=== PATIENT | male | born 1960 | race Caucasian/White ===

== ENCOUNTER 2018-10-09 14:30 | Inpatient (IN) | payer OTHER ==
[2018-10-09] MEDS ORDERED: ONDANSETRON 4 MG/2 ML VIAL IVP STA ×2 (14:52→19:05)
[2018-10-09] MEDS ORDERED: THIAMINE INJ 100 MG in SODIUM CHLORIDE 0.9% 50 ML IV STA (14:52)
[2018-10-09] MEDS ORDERED: PANTOPRAZOLE 40 MG VIAL IVP STA (14:52)
[2018-10-09] MEDS ORDERED: SODIUM CHLORIDE 0.9% 1,000 ML IV ONE ×2 (14:52→21:13)
--- NOTE | 2018-10-09 14:55 | ED Physician Documentation ---
PD HPI ABD PAIN - Stated complaint Stated Complaint: DIZZINESS - Chief complaint Chief Complaint: Abd Pain - History obtained from History obtained from: Patient, Family () - History of Present Illness Timing - onset: Other (This is a 58-year-old gentleman with history of hypertension on losartan, chronic back pain on morphine and oxycodone and reflux on omeprazole. He admits to alcohol used, totaling about 1/5 of vodka a day. The last 2 weeks he has had vomiting of bile, no blood and for a week now he has had substernal/epigastric cramping. He has had some near syncopal episodes without injury. He is chronically constipated and now it is no different.) Review of Systems Ten Systems: 10 systems reviewed and negative Constitutional: reports: Fatigue. denies: Fever, Chills Ears: denies: Ear pain, Drainage/discharge Nose: denies: Rhinorrhea / runny nose, Congestion Cardiac: reports: Chest pain / pressure. denies: Palpitations GI: reports: Abdominal Pain, Nausea, Vomiting, Constipation. denies: Diarrhea, Hematemesis, Bloody / black stool : denies: Dysuria, Frequency PD PAST MEDICAL HISTORY - Past Medical History Cardiovascular: Hypertension GI: GERD Musculoskeletal: Chronic back pain - Past Surgical History Past Surgical History: Yes General: Appendectomy, Colonoscopy - Present Medications Home Medications: Ambulatory Orders Medication Instructions Recorded Confirmed Losartan Potassium [Cozaar] 100 mg ORAL DAILY 12/21/12 10/09/18 Omeprazole [PriLOSEC] 10 mg ORAL DAILY 12/21/12 10/09/18 hydroCHLOROthiazide [Hydrodiuril] 12.5 mg PO DAILY 08/02/13 10/09/18 Morphine ER 15 mg PO BID 09/20/15 10/09/18 oxyCODONE [Roxicodone] 5 mg PO TID 09/20/15 10/09/18 - Allergies Allergies/Adverse Reactions: Allergies Allergy/AdvReac Type Severity Reaction Status Date / Time No Known Drug Allergies Allergy Verified 02/27/16 05:29 - Social History Does the pt smoke?: No Smoking Status: Never smoker Does the pt drink ETOH?: No Does the pt have substance abuse?: No - Family History Family history: reports: Non contributory - Immunizations Immunizations are current?: No - POLST Patient has POLST: No PD ED PE NORMAL - Vitals Vital signs reviewed: Yes - General General: Alert and oriented X 3, No acute distress - HEENT HEENT: PERRL, EOMI - Neck Neck: Supple, no meningeal sign, No bony TTP - Cardiac Cardiac: Other (Slight tachycardia, regular, no murmur) - Respiratory Respiratory: No respiratory distress, Clear bilaterally - Abdomen Abdomen: Normal bowel sounds, Soft, Other (Mild diffuse abdominal tenderness with fullness in the left lower quadrant) - Male Male : Other (Firm stool in vault, brown, guaiac negative, QC pass) - Back Back: No CVA TTP, No spinal TTP - Derm Derm: Normal color, Warm and dry - Extremities Extremities: No edema, No calf tenderness / cord - Neuro Neuro: Alert and oriented X 3, Normal speech Results - Vitals Vitals: Vital Signs - 24 hr 10/09/18 10/09/18 10/09/18 14:36 14:51 14:54 Temperature 36.4 C L Heart Rate 60 108 H 110 H Respiratory 18 20 16 Rate Blood Pressure 58/39 L 63/50 L 76/53 L O2 Saturation 88 L 96 98 10/09/18 10/09/18 10/09/18 15:01 15:13 15:17 Temperature Heart Rate 110 H 106 H 110 H Respiratory 16 18 18 Rate Blood Pressure 75/37 L 80/53 L 78/38 L O2 Saturation 97 98 100 10/09/18 10/09/18 10/09/18 15:20 15:25 15:35 Temperature Heart Rate 120 H 109 H 107 H Respiratory 18 18 17 Rate Blood Pressure 91/55 L 82/55 L 98/53 L O2 Saturation 97 100 97 10/09/18 10/09/18 10/09/18 15:45 15:55 16:05 Temperature Heart Rate 112 H 113 H 117 H Respiratory 15 113 H 16 Rate Blood Pressure 60/44 L 97/62 109/65 O2 Saturation 99 99 99 10/09/18 10/09/18 10/09/18 16:15 16:30 16:40 Temperature Heart Rate 115 H 118 H 120 H Respiratory 16 14 15 Rate Blood Pressure 112/68 114/72 117/77 O2 Saturation 99 97 97 10/09/18 17:31 Temperature Heart Rate 115 H Respiratory 18 Rate Blood Pressure 131/84 H O2 Saturation 98 Oxygen O2 Source Room air - EKG (time done) 1449 Rate: Rate (enter#) (110) Rhythm: Sinus tachycardia Cato: Normal Intervals: Normal [place] QRS: Normal Ischemia: Normal ST segments Computer interpretation: Agree with computer - Labs Labs: Laboratory Tests 10/09/18 10/09/18 10/09/18 14:20 14:20 14:20 WBC 15.7 H RBC 3.76 L Hgb 13.0 L Hct 39.4 L MCV 104.9 H MCH 34.5 H MCHC 32.9 RDW 13.0 Plt Count 211 MPV 7.9 Neut # (Auto) 14.1 H Lymph # (Auto) 0.8 L Mayes # (Auto) 0.7 Eos # (Auto) 0.0 Baso # (Auto) 0.1 Absolute Nucleated RBC 0.01 Nucleated RBC % 0.0 PT 12.4 INR 1.1 Sodium 135 Potassium 4.3 Chloride 94 L Carbon Dioxide 21 Anion Gap 20.0 H BUN 31 H Creatinine 1.6 H Estimated GFR (MDRD) 44 L Glucose 132 H Lactic Acid Calcium 9.7 Total Bilirubin 1.7 H AST 252 H ALT 121 H Alkaline Phosphatase 131 H Total Creatine Kinase 378 H CK-MB (CK-2) Troponin I Total Protein 8.1 Albumin 4.6 Globulin 3.5 Albumin/Globulin Ratio 1.3 Lipase 64 H Ethyl Alcohol 104.8 10/09/18 10/09/18 14:20 15:25 WBC RBC Hgb Hct MCV MCH MCHC RDW Plt Count MPV Neut # (Auto) Lymph # (Auto) Mayes # (Auto) Eos # (Auto) Baso # (Auto) Absolute Nucleated RBC Nucleated RBC % PT INR Sodium Potassium Chloride Carbon Dioxide Anion Gap BUN Creatinine Estimated GFR (MDRD) Glucose Lactic Acid 4.6 H* Calcium Total Bilirubin AST ALT Alkaline Phosphatase Total Creatine Kinase CK-MB (CK-2) 6.2 Troponin I < 0.04 Total Protein Albumin Globulin Albumin/Globulin Ratio Lipase Ethyl Alcohol - Rads (name of study) 1v chest Radiology: EMP read contemporaneously (NAD) CT A/P Radiology: EMP read contemporaneously (hepatic steatosis, stool burden. colitis) PD MEDICAL DECISION MAKING - ED course ED course: This is a 58-year-old gentleman who is an alcoholic who presents with 2 weeks of vomiting and a week's worth of abdominal pain. He is hypotensive. The low pulse oximetry in triage was never corroborated. His pressure rebounded well with IV fluids. He was guaiac negative. He was administered Protonix, Zofran, thiamine, IV fluids, and Ativan for mild withdrawal. He has evidence of alcoholic liver disease and acute renal insufficiency. CT showed evidence of colitis, constipation. For the colitis he was administered Zofran after blood cultures. Flagyl was held given concurrent intoxication. - Critical Care Time(min): 40 Time Includes: Direct patient care, Review records, Reassess patient, Document care, Coordinate care, Medical consult, Family consult for tx dec Data interpretation: Labs, Pulse ox Procedures included in critical care time: Peripheral IV Procedures excluded from critical care time: EKG - Sepsis Event Current Stage of Sepsis: Septic shock Initial Hypotension: MAP less than 65 mmHg Possible source of Sepsis: GI tract/intra-abdominal Mental/Cognitive Status: Alert/Oriented X3, Normal for patient Capillary refill: Less than 2 seconds Peripheral Pulse Strength: 1+ Faint Peripheral Pulse Location: Radial Bedside ultrasound performed: No Departure - Departure Disposition: 66 [facility] DC/Xfer Clinical Impression: Dehydration, ALLA (acute kidney injury), Colitis Hypotension Qualifiers: Hypotension type: unspecified hypotension type Qualified Code(s): I95.9 - Hypotension, unspecified Abdominal pain Qualifiers: Abdominal location: epigastric Qualified Code(s): R10.13 - Epigastric pain Vomiting Qualifiers: Vomiting type: bilious vomiting Nausea presence: with nausea Qualified Code(s): R11.14 - Bilious vomiting Condition: Critical
[2018-10-09 15:20] LABS: ALBUMIN 4.6 g/dL (3.2-5.5); ALBUMIN/GLOBULIN RATIO 1.3 (1.0-2.2); BILIRUBIN,TOTAL 1.7 mg/dL (0.2-1.0); CALCIUM 9.7 mg/dL (8.5-10.3); CREATININE 1.6 mg/dL (0.6-1.2); TOTAL PROTEIN 8.1 g/dL (6.7-8.2)
[2018-10-09 15:23] LABS: BASOPHILS # (AUTO) 0.1 10^3/uL (0.0-0.1); BASOPHILS % (AUTO) 0.3 %; EOSINOPHILS % (AUTO) 0.1 %; LYMPHOCYTES # (AUTO) 0.8 10^3/uL (1.5-3.5); LYMPHOCYTES % (AUTO) 5.3 %; MEAN CORPUSCULAR HEMOGLOBIN 34.5 pg (27.0-31.0); MEAN CORPUSCULAR HGB CONC 32.9 g/dL (32.0-36.0); MEAN CORPUSCULAR VOLUME 104.9 fL (80.0-94.0); MEAN PLATELET VOLUME 7.9 fL (7.4-11.4); MONOCYTES # (AUTO) 0.7 10^3/uL (0.0-1.0); MONOCYTES % (AUTO) 4.3 %; NEUTROPHILS # (AUTO) 14.1 10^3/uL (1.5-6.6); PLT - PLATELET COUNT 211 10^3/uL (130-450); RED BLOOD COUNT 3.76 10^6/uL (4.70-6.10); WHITE BLOOD COUNT 15.7 x10^3/uL (4.8-10.8)
[2018-10-09 15:25] LABS: TROPONIN I < 0.04 ng/mL (<0.49)
[2018-10-09 15:27] LABS: CREATINE KINASE MB 6.2 ng/mL (0.6-6.3); INR 1.1 (0.8-1.2); PT - PROTHROMBIN TIME 12.4 secs (9.9-12.6)
[2018-10-09] MEDS ORDERED: LACTATED RINGERS 2,857.62 ML IV STA (15:28)
[2018-10-09] MEDS ORDERED: IOVERSOL 320 100 ML VIAL IVP ONE (15:36)
[2018-10-09] MEDS ORDERED: LORazepam 2 MG/ML VIAL IVP STA ×2 (15:44→19:05)
--- NOTE | 2018-10-09 16:32 | XRAY Report ---
Reason: abd/chest pain Procedure Date: 10/09/2018 Accession Number: [id number] / [id number] Procedure: XR - Chest 1 View X-Ray CPT Code: 13239 FULL RESULT: EXAM: CHEST RADIOGRAPHY EXAM DATE: 10/09/2018 04:20 PM. CLINICAL HISTORY: Abd/chest pain. COMPARISON: 09/20/2015 TECHNIQUE: 1 view. FINDINGS: Lungs/Pleura: No focal opacities evident. No pleural effusion. No pneumothorax. Mediastinum: Within exam limitations, the cardiomediastinal contour is normal. Other: No acute findings compared with 09/20/2015. IMPRESSION: Normal single view chest. RADIA
--- NOTE | 2018-10-09 16:57 | CT Report ---
Reason: IV only, abd/chest pain Procedure Date: 10/09/2018 Accession Number: [id number] / [id number] Procedure: CT - Abdomen/Pelvis W CPT Code: FULL RESULT: EXAM: CT ABDOMEN AND PELVIS EXAM DATE: 10/09/2018 04:15 PM. CLINICAL HISTORY: Chest and abdominal pain. COMPARISONS: ABDOMEN/PELVIS W/ 12/21/2012 6:03 AM. TECHNIQUE: Routine helical CT imaging was performed through the abdomen and pelvis. IV contrast: 100 mL Optiray 320. Enteric contrast: No. Reconstructions: Coronal and sagittal. In accordance with CT protocol optimization, one or more of the following dose reduction techniques were utilized for this exam: automated exposure control, adjustment of mA and/or KV based on patient size, or use of iterative reconstructive technique. FINDINGS: Lung Bases: Clear. Liver: Diffuse low attenuation of the hepatic parenchyma, as before, indicating steatosis. No focal hepatic lesion. Gallbladder/Bile Ducts: Unremarkable. No visualized stones or biliary ductal dilatation. Spleen: Normal. Pancreas: Normal. Adrenal Glands: Normal. Kidneys and Ureters: Normal. No stones, hydronephrosis, or hydroureter. Peritoneal Cavity/Bowel: Large stool volume throughout the colon, with inspissated appearing stool in the sigmoid colon and rectum. Mild diffuse colon wall thickening from the ascending colon through the descending colon. No dilated small bowel loops to suggest obstruction. The appendix is not seen. No free fluid, pneumoperitoneum, or adenopathy. Pelvic Organs: The bladder and visualized reproductive organs are within normal limits. Vasculature: Mild atherosclerotic calcifications within the aorta and iliac arteries. Bones: Multilevel degenerative disk disease, most pronounced in moderate to severe at L5-S1. No acute bony abnormality. Other: None. IMPRESSION: 1. Large colorectal stool burden with inspissated appearing stool in the sigmoid colon and rectum. 2. Mild diffuse colon wall thickening from the ascending colon to the descending colon, suggesting mild colitis. 3. Steatotic liver, as before. RADIA
[2018-10-09] MEDS ORDERED: PIPERACILLIN/TAZOBACTAM 4.5 GM in SODIUM CHLORIDE 0.9% MINIBAG 100 ML IV STA (17:04)
[2018-10-09] MEDS ORDERED: MORPHINE 2 MG/ML SYRINGE IVP STA (17:12)
[2018-10-09 17:37] LABS: BILIRUBIN,URINE NEGATIVE (NEGATIVE); GLUCOSE, URINE (UA) NEGATIVE (NEGATIVE); KETONES,URINE (UA) TRACE mg/dL (NEGATIVE); LEUKOCYTE ESTERASE, URINE NEGATIVE (NEGATIVE); NITRITE,URINE NEGATIVE (NEGATIVE); OCCULT BLOOD,URINE NEGATIVE (NEGATIVE); PH,URINE 6.5 PH (5.0-7.5); PROTEIN,URINE TRACE mg/dL (NEGATIVE); UROBILINOGEN,URINE 1 (NORMAL) E.U./dL (NORMAL)
[2018-10-09 17:38] LABS: CLARITY,URINE CLEAR (CLEAR)
[2018-10-09] MEDS ORDERED: ONDANSETRON 4 MG/2 ML VIAL IVP PRN (21:04)
[2018-10-09] MEDS ORDERED: LORazepam 1 MG TABLET PO PRN ×2 (21:19→23:58)
[2018-10-09] MEDS ORDERED: PIPERACILLIN/TAZOBACTAM 3.375 GM in SODIUM CHLORIDE 0.9% MINIBAG 100 ML IV SCH (22:00)
[2018-10-09 22:01] LABS: BASOPHILS % (AUTO) 0.3 %; HGB - HEMOGLOBIN 11.9 g/dL (14.0-18.0); PLT - PLATELET COUNT 130 10^3/uL (130-450)
[2018-10-09 22:07] LABS: LYMPHOCYTES % (AUTO) 1.6 %; MEAN CORPUSCULAR HEMOGLOBIN 35.3 pg (27.0-31.0); MEAN CORPUSCULAR HGB CONC 33.6 g/dL (32.0-36.0); MEAN CORPUSCULAR VOLUME 104.9 fL (80.0-94.0); MEAN PLATELET VOLUME 7.8 fL (7.4-11.4); MONOCYTES % (AUTO) 8.3 %; NEUTROPHILS % (AUTO) 89.8 %; RED BLOOD COUNT 3.38 10^6/uL (4.70-6.10); WHITE BLOOD COUNT 9.5 x10^3/uL (4.8-10.8)
--- NOTE | 2018-10-09 22:08 | HISTORY & PHYSICAL EXAMINATION ---
Chief Complaint - Chief Complaint Chief Complaint: abdominal cramps, nausea/vomiting History of Present Illness - Admitted From Admitted From:: [facility] - History Obtained From Records Reviewed: yes History obtained from: patient - History of Present Illness HPI Comment/Other: Patient seen on 10/09/18 at 20:05 pm Patient is a 58 y/o male who presented to the ED with complain of nausea and vomiting and abdominal cramps. His symptoms have been going on daily for the past couple of weeks. However it seemed worse today so he came to the ED. In addition he had been dizzy and almost fell a couple of times. He has been unable to keep down food or his medications. He denied chest pain, HILLARY, fever, chills or lower extremity swelling. He reports some balance issues and would sometimes use a cane to get around the house. During the exam, the patient was intermittently tremulous. He has history of alcohol abuse and usually drinks a fifth of vodka daily. Today he drank a glass of vodka. He reports history of alcohol withdrawal and richard chec ked himself into a rehab facility before. Upon presentation in the ED, he was found to have a SBP as low as 50, a lactic acid of 4.6 and a WBC of 15. As a result he is being admitted for further manag ement History - Past Medical History Cardiovascular: reports: Hypertension GI: reports: GERD Musculoskeletal: reports: Chronic back pain MRSA Hx?: No Other Past Medical History: Alcohol abuse - Past Surgical History General: reports: Appendectomy, Colonoscopy Ortho: reports: Arthroscopic surgery (right knee) - Family & Social History Family History Comment/Other: Family history reviewed and negative for any significant illnesses. Patient reports that all his immediate family members are alive, healthy and well. Living arrangement: At home Living Situation: With spouse/s.o. - Substance History Abuse: Recurrent use of substance despite neg consequences: Alcohol Abuse Issues: Intoxication - POLST Patient has POLST: No POLST Status: Full Code Meds/Allgy - Home Medications Home Medications: Ambulatory Orders Medication Instructions Recorded Confirmed Losartan Potassium [Cozaar] 100 mg ORAL DAILY 12/21/12 10/09/18 Omeprazole [PriLOSEC] 10 mg ORAL DAILY 12/21/12 10/09/18 hydroCHLOROthiazide [Hydrodiuril] 12.5 mg PO DAILY 08/02/13 10/09/18 Morphine ER 15 mg PO BID 09/20/15 10/09/18 oxyCODONE [Roxicodone] 5 mg PO TID 09/20/15 10/09/18 - Allergies Allergies/Adverse Reactions: Allergies Allergy/AdvReac Type Severity Reaction Status Date / Time No Known Drug Allergies Allergy Verified 02/27/16 05:29 Review of Systems - Constitutional Constitutional: reports: Fever, Poor appetite. denies: Chills, Diaphoresis, Night sweats - Eyes Eyes: denies: Amaurosis, Blurred vision, Vision loss, Dipolpia - Ears, Nose & Throat Ears, Nose & Throat: denies: Nasal pain, Nasal discharge, Sore throat, Hoarseness - Cardiovascular Cariovascular: reports: Palpitations, Lightheadedness. denies: Chest pain, Edema - Respiratory Respiratory: denies: Cough, Wheezing, SOB at rest, SOB with exertion - Gastrointestinal Gastrointestinal: reports: Abdominal pain, Constipation, Nausea, Vomiting, Reflux/heartburn, Poor appetite. denies: Diarrhea, Black stools, Coffee grounds emesis - Genitourinary Genitourinary: denies: Dysuria, Frequency, Urgency, Hematuria - Musculoskeletal Musculoskeletal: reports: Back pain (chronic). denies: Joint swelling - Integumentary Integumentary: denies: Rash, Pruritis, Lesions - Neurological Neurological: reports: Dizziness, Abnormal gait. denies: Focal weakness, Heada mariam, Seizures, Slurred speech - Psychiatric Psychiatric: denies: Depression, Anxiety, Hallucinations - Endocrine Endocrine: denies: Polyuria, Polydypsia - Hematologic/Lymphatic Hematologic/Lymphatic: denies: Anemia, Bruising, Petechiae Prior Level of Functionality: Patient lives at home with significant other He is independent of activities of daily living Uses cane to get around the house sometimes Exam - Vital Signs Reviewed Vital Signs: Yes Vital Signs: Vital Signs x48h Temp Pulse Resp BP Pulse Ox 10/09/18 21:16 38.7 C H 10/09/18 21:12 135 H 22 94/68 93 10/09/18 20:10 136 H 18 95/55 L 95 10/09/18 19:52 38.1 C H 137 H 21 105/64 92 10/09/18 19:04 38.1 C H 117 H 15 104/65 96 10/09/18 18:04 117 H 17 131/87 H 98 10/09/18 17:49 118 H 18 144/98 H 98 10/09/18 17:31 115 H 18 131/84 H 98 10/09/18 16:40 120 H 15 117/77 97 10/09/18 16:30 118 H 14 114/72 97 10/09/18 16:15 115 H 16 112/68 99 10/09/18 16:05 117 H 16 109/65 99 10/09/18 15:55 113 H 113 H 97/62 99 10/09/18 15:45 112 H 15 60/44 L 99 10/09/18 15:35 107 H 17 98/53 L 97 10/09/18 15:25 109 H 18 82/55 L 100 10/09/18 15:20 120 H 18 91/55 L 97 10/09/18 15:17 110 H 18 78/38 L 100 10/09/18 15:13 106 H 18 80/53 L 98 10/09/18 15:01 110 H 16 75/37 L 97 10/09/18 14:54 110 H 16 76/53 L 98 10/09/18 14:51 108 H 20 63/50 L 96 10/09/18 14:36 36.4 C L 60 18 58/39 L 88 L - Physical Exam General Appearance: positive: Alert, Moderate distress Eyes Bilateral: positive: Normal inspection, PERRL, EOMI ENT: positive: ENT inspection nml, Pharynx nml, Dry mucous membranes Neck: positive: Nml inspection, No JVD, Trachea midline Respiratory: positive: Chest non-tender, No respiratory distress, Breath sounds nml. negative: Wheezes, Rales, Rhonchi Cardiovascular: positive: No murmur, Tachycardia Abdomen: positive: Nml bowel sounds, Tenderness. negative: Guarding, Rebound Back: positive: Nml inspection Skin: positive: Color nml, No rash, Warm, Dry. negative: Cyanosis, Diaphoresis Extremities: positive: Non-tender, Full ROM, Nml appearance, No pedal edema, Joint swelling Neurologic/Psychiatric: positive: Oriented x3, Other (tremulous) Sepsis Event Note (H) - Evaluation Current Stage of Sepsis: Sepsis Possible source of Sepsis: positive: GI tract/intra-abdominal - Sepsis Criteria Sepsis Criteria: Suspected or Documented, Recorded Temperature greater than 38.3C or Less than 36C, Recorded Heart Rate greater than 90 bpm, WBC count greater than 12,000 or less than 4000, SBP less than 90 mmHg, Metabolic: lactate > 2 mmol/L Conclusion/Plan - Problem List (1) Sepsis Conclusion/Plan: Etiology undetermined However, GI source: colitis suspected per CT of abd/pelvis Patient started on zosyn. Will continue Blood cultures pending IV hydration. Tylenol for fevers (2) Colitis Conclusion/Plan: Mild. Suggested on CT abd/pelvis Patient on IV antibiotics and IV hydration (3) Hypotension Conclusion/Plan: ? Multifactorial sepsis vs dehydration vs medication Patient being hydrated with normal saline. On IV antibiotics. Will hold HCTZ and lisinopril Qualifiers: Hypotension type: unspecified hypotension type Qualified Code(s): I95.9 - Hypotension, unspecified (4) Alcohol abuse Conclusion/Plan: CIWA protocol ordered (5) Macrocytic Conclusion/Plan: Likely related to alcohol abuse and possibly Vit B12 deficiency Will recheck and replace accordingly (6) ALLA (acute kidney injury) Conclusion/Plan: Likely multifactorial ?Sepsis, dehydration and/or medication IV antibiotics. IV hydration. Lisinopril/ HCTZ currently held Improving (7) GERD (gastroesophageal reflux disease) Conclusion/Plan: Protonix ordered (8) Chronic back pain Conclusion/Plan: MS Contin 15mg ED po bid ordered Qualifiers: Back pain location: low back pain - Lab Results Fish Bones: 10/09/18 14:20 10/09/18 14:20 Core Measures - Anticipated LOS I expect patient to be DC'd or transferred within 96 hours.: Yes - DVT/VTE - Prophylaxis VTE/DVT Device ordered at admit?: Yes VTE/DVT Prophylaxis med ordered at admit?: No Not Ordered - Medical Reason: Not indicated
[2018-10-09 22:12] LABS: INR 1.2 (0.8-1.2); PT - PROTHROMBIN TIME 13.2 secs (9.9-12.6)
[2018-10-09 22:19] LABS: ABNORMAL LYMPHS % (MANUAL) 0 %; ALBUMIN 3.5 g/dL (3.2-5.5); ALBUMIN/GLOBULIN RATIO 1.2 (1.0-2.2); BILIRUBIN,TOTAL 1.9 mg/dL (0.2-1.0); CALCIUM 8.8 mg/dL (8.5-10.3); CREATININE 1.4 mg/dL (0.6-1.2); TOTAL PROTEIN 6.5 g/dL (6.7-8.2)
[2018-10-09 22:37] LABS: BAND NEUTROPHILS % (MANUAL) 29 %; LYMPHOCYTES # (MANUAL) 0.3 10^3/uL (1.5-3.5); LYMPHOCYTES % (MANUAL) 3 %; MONOCYTES # (MANUAL) 0.9 10^3/uL (0.0-1.0); NEUTROPHILS # (MANUAL) 8.4 10^3/uL (1.5-6.6); NEUTROPHILS % (MANUAL) 59 %
[2018-10-09 22:38] LABS: DIFFERENTIAL COMMENT MANUAL DIFFERENTIAL; PLATELET ESTIMATE, MANUAL NORMAL (130-450,000) (NORMAL); PLATELET MORPHOLOGY NORMAL APPEARANCE (NORMAL); RBC MORPHOLOGY (MULTIPLE) NORMAL APPEARANCE (NORMAL)
[2018-10-09] MEDS: MORPHINE ER 15 MG TABLET PO SCH (23:08)
[2018-10-09] MEDS ORDERED: MORPHINE ER 15 MG TABLET ONE (23:12)
[2018-10-09] MEDS: SODIUM CHLORIDE 0.9% 1,000 ML IV SCH (23:49)
[2018-10-10] MEDS ORDERED: LORazepam 2 MG/ML VIAL IVP PRN (00:01)
[2018-10-10] MEDS: PIPERACILLIN/TAZOBACTAM 3.375 GM in SODIUM CHLORIDE 0.9% MINIBAG 100 ML IV SCH ×3 (02:37→18:10)
[2018-10-10] MEDS: SODIUM CHLORIDE FLUSH 0.9% 10 ML SYRINGE IVP SCH ×3 (02:38→16:49)
[2018-10-10 05:46] LABS: BASOPHILS % (AUTO) 0.1 %; HGB - HEMOGLOBIN 11.9 g/dL (14.0-18.0); LYMPHOCYTES # (AUTO) 0.1 10^3/uL (1.5-3.5); LYMPHOCYTES % (AUTO) 3.6 %; MEAN CORPUSCULAR HEMOGLOBIN 35.1 pg (27.0-31.0); MEAN CORPUSCULAR HGB CONC 33.3 g/dL (32.0-36.0); MEAN CORPUSCULAR VOLUME 105.4 fL (80.0-94.0); MEAN PLATELET VOLUME 8.1 fL (7.4-11.4); MONOCYTES # (AUTO) 0.5 10^3/uL (0.0-1.0); MONOCYTES % (AUTO) 12.7 %; NEUTROPHILS # (AUTO) 3.2 10^3/uL (1.5-6.6); NEUTROPHILS % (AUTO) 83.6 %; PLT - PLATELET COUNT 110 10^3/uL (130-450); RED BLOOD COUNT 3.39 10^6/uL (4.70-6.10); RED CELL DISTRIBUTION WIDTH 13.1 % (12.0-15.0); WHITE BLOOD COUNT 3.8 x10^3/uL (4.8-10.8)
[2018-10-10 05:59] LABS: ALBUMIN 3.3 g/dL (3.2-5.5); ALBUMIN/GLOBULIN RATIO 1.1 (1.0-2.2); BILIRUBIN,TOTAL 1.5 mg/dL (0.2-1.0); CALCIUM 8.8 mg/dL (8.5-10.3); CREATININE 1.5 mg/dL (0.6-1.2); MAGNESIUM 1.6 mg/dL (1.7-2.8); PHOSPHORUS 3.9 mg/dL (2.5-4.6); TOTAL PROTEIN 6.2 g/dL (6.7-8.2)
[2018-10-10 06:44] LABS: FOLATE 8.79 ng/mL (5.90 - >24.8)
[2018-10-10] MEDS: chlordiazePOXIDE 25 MG CAPSULE PO SCH ×4 (07:11→23:04)
[2018-10-10] MEDS: MAGNESIUM OXIDE 400 MG TABLET PO SCH ×2 (07:11→12:11)
[2018-10-10] MEDS: PANTOPRAZOLE 40 MG VIAL IVP SCH (07:15)
--- NOTE | 2018-10-10 08:13 | PROVIDER PROGRESS NOTE ---
Assessment/Plan - Problem List (1) Sepsis Assessment/Plan: Tachycardia and fever and WBC have improved, but L.A. still fluctuating up. Continue plan to treat for colitis source. Await blood cultures. (2) Colitis Assessment/Plan: Continue bowel rest (clear liquids allowed), and empiric antibiotics. He has alot of gas which he wishes to manage with ambulation, which I support. (3) Alcohol withdrawal Qualifiers: Complication of substance-induced condition: uncomplicated Qualified Code(s): F10.230 - Alcohol dependence with withdrawal, uncomplicated Assessment/Plan: He is comfortable and no signs of withdrawal on his scheduled Librium, started by the admitting doctor. CIWA ordered to assess. Thiamine daily ordered. (4) ALLA (acute kidney injury) Assessment/Plan: Improved with iv hydration. Follow BMP daily. (5) Dehydration Assessment/Plan: Related to 2 weks of GI sx of N/V/D. Continue iv hydration. Follow BMP and Mg daily (6) Chronic back pain Qualifiers: Back pain location: low back pain Assessment/Plan: Continue his home dose of narcotocs for pain control. (7) Macrocytic anemia Assessment/Plan: B12 and Folate levels were still WNL. Will add a vitamin daily due to his alcohol abuse history. (8) Pancytopenia Assessment/Plan: Probably related to alcohol suppression of bone narrow. Follow CBC daily - Current Meds Current Meds: Current Medications Generic Name Dose Route Start Last Admin Trade Name Freq PRN Reason Stop Dose Admin Chlordiazepoxide HCl 50 mg 10/10/18 07:00 10/10/18 07:11 Librium PO 10/12/18 00:01 50 mg Q6HR DANETTE Administration Sodium Chloride 1,000 mls @ 100 mls/hr 10/09/18 22:00 10/10/18 07:00 Normal Saline 0.9% IV 100 mls/hr .Q10H DANETTE Infusion Piperacillin Sod/Tazobactam 100 mls @ 25 mls/hr 10/10/18 02:00 10/10/18 06:30 Sod 3.375 gm/ Sodium Chloride IV Infused Q8H DANETTE Infusion Lorazepam 1 mg 10/10/18 00:01 10/10/18 00:07 Ativan Inj (Vial) IVP 1 mg Q1H PRN Administration Alcohol Withdrawal Magnesium Oxide 400 mg 10/10/18 07:00 10/10/18 07:11 Mag Ox PO 10/10/18 13:01 400 mg Q6H DANETTE Administration Protocol Morphine Sulfate 15 mg 10/09/18 23:00 10/09/18 23:08 PO 15 mg BID DANETTE Administration Pantoprazole Sodium 40 mg 10/10/18 07:00 10/10/18 07:15 Protonix IVP 40 mg QDAC DANETTE Administration Sodium Chloride 10 ml 10/10/18 01:00 10/10/18 02:38 Normal Saline Flush 0.9% IVP 10 ml 0100,[id number],1700 DANETTE Administration - Lab Result Fish Bone Diagrams: 10/10/18 05:25 10/10/18 05:25 Subjective - Subjective Patient Reports: Feeling Better, Diarrhea (Decreased from 6 BMs to 3, still has cramping after clear liquids swallowed, no more N/V.), Other Objective Vital Signs: Vital Signs - 24 hr 10/09/18 10/09/18 10/09/18 14:36 14:51 14:54 Temperature 36.4 C L Heart Rate 60 108 H 110 H Heart Rate [ Monitoring electrodes] Respiratory 18 20 16 Rate Blood Pressure 58/39 L 63/50 L 76/53 L Blood Pressure [Right Brachial artery] O2 Saturation 88 L 96 98 10/09/18 10/09/18 10/09/18 15:01 15:13 15:17 Temperature Heart Rate 110 H 106 H 110 H Heart Rate [ Monitoring electrodes] Respiratory 16 18 18 Rate Blood Pressure 75/37 L 80/53 L 78/38 L Blood Pressure [Right Brachial artery] O2 Saturation 97 98 100 10/09/18 10/09/18 10/09/18 15:20 15:25 15:35 Temperature Heart Rate 120 H 109 H 107 H Heart Rate [ Monitoring electrodes] Respiratory 18 18 17 Rate Blood Pressure 91/55 L 82/55 L 98/53 L Blood Pressure [Right Brachial artery] O2 Saturation 97 100 97 10/09/18 10/09/18 10/09/18 15:45 15:55 16:05 Temperature Heart Rate 112 H 113 H 117 H Heart Rate [ Monitoring electrodes] Respiratory 15 113 H 16 Rate Blood Pressure 60/44 L 97/62 109/65 Blood Pressure [Right Brachial artery] O2 Saturation 99 99 99 10/09/18 10/09/18 10/09/18 16:15 16:30 16:40 Temperature Heart Rate 115 H 118 H 120 H Heart Rate [ Monitoring electrodes] Respiratory 16 14 15 Rate Blood Pressure 112/68 114/72 117/77 Blood Pressure [Right Brachial artery] O2 Saturation 99 97 97 10/09/18 10/09/18 10/09/18 17:31 17:49 18:04 Temperature Heart Rate 115 H 118 H 117 H Heart Rate [ Monitoring electrodes] Respiratory 18 18 17 Rate Blood Pressure 131/84 H 144/98 H 131/87 H Blood Pressure [Right Brachial artery] O2 Saturation 98 98 98 10/09/18 10/09/18 10/09/18 19:04 19:52 20:10 Temperature 38.1 C H 38.1 C H Heart Rate 117 H 137 H 136 H Heart Rate [ Monitoring electrodes] Respiratory 15 21 18 Rate Blood Pressure 104/65 105/64 95/55 L Blood Pressure [Right Brachial artery] O2 Saturation 96 92 95 10/09/18 10/09/18 10/09/18 21:12 21:16 21:48 Temperature 38.7 C H Heart Rate 135 H 127 H Heart Rate [ Monitoring electrodes] Respiratory 22 19 Rate Blood Pressure 94/68 Blood Pressure [Right Brachial artery] O2 Saturation 93 10/09/18 10/09/18 10/09/18 22:00 22:19 22:20 Temperature Heart Rate 143 H 127 H 128 H Heart Rate [ Monitoring electrodes] Respiratory 23 17 18 Rate Blood Pressure 97/54 L Blood Pressure [Right Brachial artery] O2 Saturation 10/09/18 10/09/18 10/09/18 22:29 22:30 22:59 Temperature Heart Rate 122 H 124 H 119 H Heart Rate [ Monitoring electrodes] Respiratory 17 21 23 Rate Blood Pressure 84/62 L Blood Pressure [Right Brachial artery] O2 Saturation 10/09/18 10/09/18 10/09/18 23:00 23:01 23:29 Temperature Heart Rate 124 H 115 H 146 H Heart Rate [ Monitoring electrodes] Respiratory 15 20 23 Rate Blood Pressure 94/73 Blood Pressure [Right Brachial artery] O2 Saturation 10/09/18 10/10/18 10/10/18 23:30 00:00 00:01 Temperature Heart Rate 134 H 120 H 120 H Heart Rate [ Monitoring electrodes] Respiratory 25 H 27 H 25 H Rate Blood Pressure 98/71 112/72 Blood Pressure [Right Brachial artery] O2 Saturation 10/10/18 10/10/18 10/10/18 00:30 00:31 00:59 Temperature Heart Rate 116 H 118 H 124 H Heart Rate [ 123 H Monitoring electrodes] Respiratory 25 H 20 20 Rate Blood Pressure 105/72 Blood Pressure 120/78 [Right Brachial artery] O2 Saturation 97 10/10/18 10/10/18 10/10/18 01:00 02:00 02:01 Temperature 37.2 C Heart Rate 115 H 122 H Heart Rate [ 119 H Monitoring electrodes] Respiratory 20 24 23 Rate Blood Pressure 120/78 124/79 Blood Pressure 124/79 [Right Brachial artery] O2 Saturation 96 10/10/18 10/10/18 10/10/18 03:00 04:00 05:00 Temperature 37.8 C H Heart Rate 121 H 123 H 117 H Heart Rate [ 120 H 123 H 119 H Monitoring electrodes] Respiratory 21 16 19 Rate Blood Pressure 104/71 118/83 H 139/91 H Blood Pressure 104/71 118/83 H 139/91 H [Right Brachial artery] O2 Saturation 94 97 97 10/10/18 10/10/18 05:54 07:00 Temperature Heart Rate Heart Rate [ 125 H 124 H Monitoring electrodes] Respiratory 22 27 H Rate Blood Pressure Blood Pressure 120/69 131/101 H [Right Brachial artery] O2 Saturation 100 98 Oxygen O2 Source Nasal cannula Oxygen Flow Rate 2 I&O (Last 24 Hrs): Intake and Output Totals x24h 10/08/18 10/09/18 10/10/18 23:59 23:59 23:59 Intake Total 5108.62 1338.333 Output Total 840 725 Balance 4268.62 613.333 General: Alert, Oriented x3 HEENT: Mucous membr. moist/pink Neck: Supple, No JVD Neuro: Non Focal, Other (No tremors) Cardiovascular: Regular rate, No murmurs Respiratory: No respiratory distress, Breath sounds nml Abdomen: Other (Distended moderately, hypertympanic, no tenderness, no guarding or rebound) Extremities: No edema - Results Results: Laboratory Results WBC 3.8 x10^3/uL (4.8-10.8) L 10/10/18 05:25 RBC 3.39 10^6/uL (4.70-6.10) L 10/10/18 05:25 Hgb 11.9 g/dL (14.0-18.0) L 10/10/18 05:25 Hct 35.7 % (42.0-52.0) L 10/10/18 05:25 MCV 105.4 fL (80.0-94.0) H 10/10/18 05:25 MCH 35.1 pg (27.0-31.0) H 10/10/18 05:25 MCHC 33.3 g/dL (32.0-36.0) 10/10/18 05:25 RDW 13.1 % (12.0-15.0) 10/10/18 05:25 Plt Count 110 10^3/uL (130-450) L 10/10/18 05:25 MPV 8.1 fL (7.4-11.4) 10/10/18 05:25 Neut # (Auto) 3.2 10^3/uL (1.5-6.6) 10/10/18 05:25 Lymph # (Auto) 0.1 10^3/uL (1.5-3.5) L 10/10/18 05:25 [place] # (Auto) 0.5 10^3/uL (0.0-1.0) 10/10/18 05:25 Eos # (Auto) 0.0 10^3/uL (0.0-0.7) 10/10/18 05:25 Baso # (Auto) 0.0 10^3/uL (0.0-0.1) 10/10/18 05:25 Absolute Nucleated RBC 0.00 x10^3/uL 10/10/18 05:25 Total Counted 100 10/09/18 21:58 Band Neuts % (Manual) 29 % (0-10) H 10/09/18 21:58 Abnorm Lymph % (Manual) 0 % 10/09/18 21:58 Nucleated RBC % 0.0 /100WBC 10/10/18 05:25 Neutrophils # (Manual) 8.4 10^3/uL (1.5-6.6) H 10/09/18 21:58 Lymphocytes # (Manual) 0.3 10^3/uL (1.5-3.5) L 10/09/18 21:58 Monocytes # (Manual) 0.9 10^3/uL (0.0-1.0) 10/09/18 21:58 Eosinophils # (Manual) 0.0 10^3/uL (0-0.7) 10/09/18 21:58 Basophils # (Manual) 0.0 10^3/uL (0-0.1) 10/09/18 21:58 Differential Comment MANUAL DIFFERENTIAL 10/09/18 21:58 Platelet Estimate NORMAL (130-450,000) (NORMAL) 10/09/18 21:58 Platelet Morphology NORMAL APPEARANCE (NORMAL) 10/09/18 21:58 RBC Morph Micro Appear NORMAL APPEARANCE (NORMAL) 10/09/18 21:58 PT 13.2 secs (9.9-12.6) H 10/09/18 21:58 INR 1.2 (0.8-1.2) 10/09/18 21:58 Sodium 137 mmol/L (135-145) 10/10/18 05:25 Potassium 4.9 mmol/L (3.5-5.0) 10/10/18 05:25 Chloride 100 mmol/L (101-111) L 10/10/18 05:25 Carbon Dioxide 23 mmol/L (21-32) 10/10/18 05:25 Anion Gap 14.0 (6-13) H 10/10/18 05:25 BUN 39 mg/dL (6-20) H 10/10/18 05:25 Creatinine 1.5 mg/dL (0.6-1.2) H 10/10/18 05:25 Estimated GFR (MDRD) 48 (>89) L 10/10/18 05:25 Glucose 167 mg/dL (70-100) H 10/10/18 05:25 Lactic Acid 2.7 mmol/L (0.5-2.2) H 10/10/18 05:25 Calcium 8.8 mg/dL (8.5-10.3) 10/10/18 05:25 Phosphorus 3.9 mg/dL (2.5-4.6) 10/10/18 05:25 Magnesium 1.6 mg/dL (1.7-2.8) L 10/10/18 05:25 Total Bilirubin 1.5 mg/dL (0.2-1.0) H 10/10/18 05:25 AST 141 IU/L (10-42) H 10/10/18 05:25 ALT 84 IU/L (10-60) H 10/10/18 05:25 Alkaline Phosphatase 72 IU/L (42-121) 10/10/18 05:25 Total Creatine Kinase 378 IU/L (22-269) H 10/09/18 14:20 CK-MB (CK-2) 6.2 ng/mL (0.6-6.3) 10/09/18 14:20 Troponin I < 0.04 ng/mL (<0.49) 10/09/18 14:20 Total Protein 6.2 g/dL (6.7-8.2) L 10/10/18 05:25 Albumin 3.3 g/dL (3.2-5.5) 10/10/18 05:25 Globulin 2.9 g/dL (2.1-4.2) 10/10/18 05:25 Albumin/Globulin Ratio 1.1 (1.0-2.2) 10/10/18 05:25 Lipase 64 U/L (22-51) H 10/09/18 14:20 Vitamin B12 257 pg/mL (180-914) 10/10/18 05:25 Folate 8.79 ng/mL (5.90 - >24.8) 10/10/18 05:25 Urine Color DARK YELLOW 10/09/18 17:30 Urine Clarity CLEAR (CLEAR) 10/09/18 17:30 Urine pH 6.5 PH (5.0-7.5) 10/09/18 17:30 Ur Specific [place] 1.010 (1.002-1.030) 10/09/18 17:30 Urine Protein TRACE mg/dL (NEGATIVE) 10/09/18 17:30 Urine Glucose (UA) NEGATIVE mg/dL (NEGATIVE) 10/09/18 17:30 Urine Ketones TRACE mg/dL (NEGATIVE) 10/09/18 17:30 Urine Occult Blood NEGATIVE (NEGATIVE) 10/09/18 17:30 Urine Nitrite NEGATIVE (NEGATIVE) 10/09/18 17:30 Urine Bilirubin NEGATIVE (NEGATIVE) 10/09/18 17:30 Urine Urobilinogen 1 (NORMAL) E.U./dL (NORMAL) 10/09/18 17:30 Ur Leukocyte Esterase NEGATIVE (NEGATIVE) 10/09/18 17:30 Ur Microscopic Review NOT INDICATED 10/09/18 17:30 Urine Culture Comments NOT INDICATED 10/09/18 17:30 Nasal Screen MRSA (PCR) NEGATIVE (NEGATIVE) 10/09/18 21:58 Ethyl Alcohol 104.8 mg/dL 10/09/18 14:20 Sepsis Event Note (H) - Evaluation Current Stage of Sepsis: Sepsis Possible source of Sepsis: positive: GI tract/intra-abdominal - Sepsis Criteria Sepsis Criteria: Suspected or Documented, Recorded Temperature greater than 38.3C or Less than 36C, Recorded Heart Rate greater than 90 bpm, WBC count greater than 12,000 or less than 4000, SBP less than 90 mmHg, Metabolic: lactate > 2 mmol/L
[2018-10-10] MEDS: MORPHINE ER 15 MG TABLET PO SCH ×2 (09:04→20:28)
[2018-10-10] MEDS: PRENATAL VITAMIN TABLET PO SCH (09:04)
[2018-10-10] MEDS: THIAMINE 100 MG TABLET PO SCH (09:06)
[2018-10-10] MEDS: SODIUM CHLORIDE 0.9% 1,000 ML IV SCH ×2 (10:00→23:22)
[2018-10-10] MEDS: ACETAMINOPHEN 325 MG TABLET PO PRN (11:06)
[2018-10-10] MEDS ORDERED: SODIUM CHLORIDE 0.9% 1,000 ML IV ONE (23:01)
[2018-10-11] MEDS: SODIUM CHLORIDE 0.9% 1,000 ML IV SCH ×3 (00:31→19:43)
[2018-10-11] MEDS: SODIUM CHLORIDE FLUSH 0.9% 10 ML SYRINGE IVP SCH ×4 (01:23→23:28)
[2018-10-11] MEDS: PIPERACILLIN/TAZOBACTAM 3.375 GM in SODIUM CHLORIDE 0.9% MINIBAG 100 ML IV SCH ×3 (02:09→17:40)
[2018-10-11 05:30] LABS: BASOPHILS % (AUTO) 0.1 %; EOSINOPHILS % (AUTO) 0.2 %; LYMPHOCYTES % (AUTO) 9.6 %; MEAN CORPUSCULAR HEMOGLOBIN 35.6 pg (27.0-31.0); MEAN CORPUSCULAR HGB CONC 33.7 g/dL (32.0-36.0); MEAN CORPUSCULAR VOLUME 105.5 fL (80.0-94.0); MEAN PLATELET VOLUME 8.9 fL (7.4-11.4); MONOCYTES % (AUTO) 9.2 %; NEUTROPHILS % (AUTO) 80.9 %; PLT - PLATELET COUNT 82 10^3/uL (130-450); RED BLOOD COUNT 2.82 10^6/uL (4.70-6.10); RED CELL DISTRIBUTION WIDTH 12.8 % (12.0-15.0); WHITE BLOOD COUNT 3.9 x10^3/uL (4.8-10.8)
[2018-10-11 05:33] LABS: ALBUMIN 2.8 g/dL (3.2-5.5); BILIRUBIN,TOTAL 1.2 mg/dL (0.2-1.0); CALCIUM 7.8 mg/dL (8.5-10.3); CREATININE 1.9 mg/dL (0.6-1.2); MAGNESIUM 1.9 mg/dL (1.7-2.8); TOTAL PROTEIN 5.7 g/dL (6.7-8.2)
[2018-10-11 05:34] LABS: ABNORMAL LYMPHS % (MANUAL) 0 %
[2018-10-11 06:03] LABS: BAND NEUTROPHILS % (MANUAL) 37 %; LYMPHOCYTES # (MANUAL) 0.6 10^3/uL (1.5-3.5); LYMPHOCYTES % (MANUAL) 15 %; METAMYELOCYTES % (MANUAL) 2 %; MONOCYTES # (MANUAL) 0.1 10^3/uL (0.0-1.0); MYELOCYTES % (MANUAL) 2 %; NEUTROPHILS # (MANUAL) 3.1 10^3/uL (1.5-6.6); NEUTROPHILS % (MANUAL) 42 %; PLATELET ESTIMATE, MANUAL DECREASED (<130,000) (NORMAL); RBC MORPHOLOGY (MULTIPLE) NORMAL APPEARANCE (NORMAL)
[2018-10-11 06:04] LABS: DIFFERENTIAL COMMENT MANUAL DIFFERENTIAL
[2018-10-11] MEDS: PANTOPRAZOLE 40 MG VIAL IVP SCH (06:37)
[2018-10-11] MEDS: chlordiazePOXIDE 25 MG CAPSULE PO SCH ×4 (06:38→23:28)
[2018-10-11] MEDS: SODIUM CHLORIDE FLUSH 0.9% 10 ML SYRINGE IVP PRN (06:38)
[2018-10-11] MEDS ORDERED: SODIUM CHLORIDE 0.9% 500 ML IV ONE (07:43)
--- NOTE | 2018-10-11 07:58 | PROVIDER PROGRESS NOTE ---
Assessment/Plan - Problem List (1) Sepsis Assessment/Plan: The patient still has septic shock-like vital signs with hypotension and tachycardia. Will check a L.A level, troponin to R/O WA, give a saline bolus and obtain an Echo to evaluate chamber sizes and LV and RV. Treat colitis. (2) Colitis Assessment/Plan: Continue iv antibiotics. If stool has not been sent for C. diff, will order. (3) Alcohol withdrawal Qualifiers: Complication of substance-induced condition: uncomplicated Qualified Code(s): F10.230 - Alcohol dependence with withdrawal, uncomplicated Assessment/Plan: Continue the Librium po dosing as a taper. Continue CIWA protocol. (4) ALLA (acute kidney injury) Assessment/Plan: Creat drew, along with hypotension and tachycardia, suggest volume depletion. Will give saline bolus, obtain Echo. Continue rehydration while po intake is minimal due to colitis management. Will change iv LR to iv D5NS w/ KCl to decrease citrate load in renal failure.. Follow BMP daily. (5) Dehydration Assessment/Plan: As in #4 (6) Chronic back pain Qualifiers: Back pain location: low back pain Assessment/Plan: Continue scheduled meds, as taken at home (7) Macrocytic anemia Assessment/Plan: On Thiamine and MOV (8) Pancytopenia Assessment/Plan: Likely re;lated to alcohol abuse and marrow suppression. Watching CBC daily. - Current Meds Current Meds: Current Medications Generic Name Dose Route Start Last Admin Trade Name Freq PRN Reason Stop Dose Admin Acetaminophen 650 mg 10/10/18 10:45 10/10/18 11:06 Tylenol PO 650 mg Q4HR PRN Administration Pain or Fever > 38C (100.4F) Chlordiazepoxide HCl 50 mg 10/10/18 07:00 10/11/18 06:38 Librium PO 10/12/18 00:01 50 mg Q6HR DANETTE Administration Sodium Chloride 1,000 mls @ 100 mls/hr 10/09/18 22:00 10/11/18 07:00 Normal Saline 0.9% IV 100 mls/hr .Q10H DANETTE Infusion Piperacillin Sod/Tazobactam 100 mls @ 25 mls/hr 10/10/18 02:00 10/11/18 06:30 Sod 3.375 gm/ Sodium Chloride IV Infused Q8H DANETTE Infusion Sodium Chloride 500 mls @ 999 mls/hr 10/11/18 07:43 10/11/18 07:55 Normal Saline 0.9% IV 10/11/18 08:13 999 mls/hr ONCE ONE Administration Lorazepam 1 mg 10/10/18 00:01 10/10/18 00:07 Ativan Inj (Vial) IVP 1 mg Q1H PRN Administration Alcohol Withdrawal Morphine Sulfate 15 mg 10/09/18 23:00 10/10/18 20:28 PO 15 mg BID DANETTE Administration Pantoprazole Sodium 40 mg 10/10/18 07:00 10/11/18 06:37 Protonix IVP 40 mg QDAC DANETTE Administration Multivit/Folic Acid/Iron 1 tab 10/10/18 09:00 10/10/18 09:04 Trinatal Rx 1 PO 1 tab DAILY DANETTE Administration Sodium Chloride 10 ml 10/10/18 01:00 10/11/18 07:54 Normal Saline Flush 0.9% IVP 10 ml 0100,0900,1700 DANETTE Administration Sodium Chloride 10 ml 10/09/18 21:04 10/11/18 06:38 Normal Saline Flush 0.9% IVP 10 ml PRN PRN Administration NEEDED PER PROVIDER ORDERS Thiamine HCl 100 mg 10/10/18 09:00 10/10/18 09:06 Vitamin B-1 PO 100 mg DAILY DANETTE Administration - Lab Result Fish Bone Diagrams: 10/11/18 04:35 10/11/18 04:35 - Additional Planning My Orders: My Active Orders 10/10/18 10:45 Acetaminophen [Tylenol] 650 mg PO Q4HR PRN 10/11/18 07:43 Sodium Chloride 0.9% [Normal Saline 0.9%] 500 ml IV ONCE 10/11/18 07:47 Echo Transthoracic Complete [ECHO] Routine 10/12/18 05:00 MAGNESIUM [CHEM] DAILYLAB 10/13/18 05:00 MAGNESIUM [CHEM] DAILYLAB Objective Vital Signs: Vital Signs - 24 hr 10/10/18 10/10/18 10/10/18 08:00 09:00 11:00 Temperature 36.4 C L Heart Rate [ 124 H 124 H 115 H Monitoring electrodes] Respiratory 20 28 H 25 H Rate Blood Pressure 93/59 L [Left Brachial artery] Blood Pressure 112/82 H 90/53 L [Right Brachial artery] O2 Saturation 93 97 99 10/10/18 10/10/18 10/10/18 12:00 13:00 14:00 Temperature Heart Rate [ 121 H 124 H 121 H Monitoring electrodes] Respiratory 25 H 24 23 Rate Blood Pressure 89/70 L [Left Brachial artery] Blood Pressure [Right Brachial artery] O2 Saturation 98 97 94 10/10/18 10/10/18 10/10/18 15:00 16:00 17:00 Temperature Heart Rate [ 122 H 125 H 120 H Monitoring electrodes] Respiratory 27 H 29 H 24 Rate Blood Pressure 113/100 H 110/86 H [Left Brachial artery] Blood Pressure [Right Brachial artery] O2 Saturation 95 94 97 10/10/18 10/10/18 10/10/18 18:00 19:00 20:10 Temperature 36.7 C Heart Rate [ 126 H 126 H 125 H Monitoring electrodes] Respiratory 24 25 H 19 Rate Blood Pressure 96/69 81/55 L [Left Brachial artery] Blood Pressure [Right Brachial artery] O2 Saturation 94 96 95 10/10/18 10/10/18 10/11/18 22:35 23:14 00:15 Temperature 36.7 C Heart Rate [ 120 H 115 H 113 H Monitoring electrodes] Respiratory 20 18 16 Rate Blood Pressure 70/57 L 110/59 L 108/91 H [Left Brachial artery] Blood Pressure [Right Brachial artery] O2 Saturation 96 93 95 10/11/18 10/11/18 10/11/18 01:10 02:00 03:00 Temperature Heart Rate [ 114 H 114 H 115 H Monitoring electrodes] Respiratory 17 16 21 Rate Blood Pressure 95/56 L 78/56 L 96/61 [Left Brachial artery] Blood Pressure [Right Brachial artery] O2 Saturation 95 95 93 10/11/18 10/11/18 10/11/18 04:00 05:00 06:00 Temperature 36.8 C Heart Rate [ 111 H 113 H 117 H Monitoring electrodes] Respiratory 21 21 23 Rate Blood Pressure 99/61 94/59 L 87/60 L [Left Brachial artery] Blood Pressure [Right Brachial artery] O2 Saturation 93 94 93 Oxygen O2 Source Room air Oxygen Flow Rate 2 I&O (Last 24 Hrs): Intake and Output Totals x24h 10/09/18 10/10/18 10/11/18 23:59 23:59 23:59 Intake Total 5108.62 3036.667 3050.000 Output Total 840 1376 1 Balance 4268.62 6643.790 6738.000 - Results Results: Laboratory Results WBC 3.9 x10^3/uL (4.8-10.8) L 10/11/18 04:35 RBC 2.82 10^6/uL (4.70-6.10) L 10/11/18 04:35 Hgb 10.0 g/dL (14.0-18.0) L 10/11/18 04:35 Hct 29.7 % (42.0-52.0) L 10/11/18 04:35 MCV 105.5 fL (80.0-94.0) H 10/11/18 04:35 MCH 35.6 pg (27.0-31.0) H 10/11/18 04:35 MCHC 33.7 g/dL (32.0-36.0) 10/11/18 04:35 RDW 12.8 % (12.0-15.0) 10/11/18 04:35 Plt Count 82 10^3/uL (130-450) L 10/11/18 04:35 MPV 8.9 fL (7.4-11.4) 10/11/18 04:35 Neut # (Auto) Not Reportable 10/11/18 04:35 Lymph # (Auto) Not Reportable 10/11/18 04:35 [place] # (Auto) Not Reportable 10/11/18 04:35 Eos # (Auto) Not Reportable 10/11/18 04:35 Baso # (Auto) Not Reportable 10/11/18 04:35 Absolute Nucleated RBC Not Reportable 10/11/18 04:35 Total Counted 100 10/11/18 04:35 Band Neuts % (Manual) 37 % (0-10) H 10/11/18 04:35 Abnorm Lymph % (Manual) 0 % 10/11/18 04:35 Metamyelocytes % 2 % (-0) H 10/11/18 04:35 Myelocytes % 2 % (-0) H 10/11/18 04:35 Nucleated RBC % Not Reportable 10/11/18 04:35 Neutrophils # (Manual) 3.1 10^3/uL (1.5-6.6) 10/11/18 04:35 Lymphocytes # (Manual) 0.6 10^3/uL (1.5-3.5) L 10/11/18 04:35 Monocytes # (Manual) 0.1 10^3/uL (0.0-1.0) 10/11/18 04:35 Eosinophils # (Manual) 0.0 10^3/uL (0-0.7) 10/11/18 04:35 Basophils # (Manual) 0.0 10^3/uL (0-0.1) 10/11/18 04:35 Differential Comment MANUAL DIFFERENTIAL 10/11/18 04:35 WBC Morphology 1+ TOXIC GRANULATION (NORMAL) 10/11/18 04:35 Platelet Estimate DECREASED (<130,000) (NORMAL) 10/11/18 04:35 Platelet Morphology NORMAL APPEARANCE (NORMAL) 10/09/18 21:58 RBC Morph Micro Appear NORMAL APPEARANCE (NORMAL) 10/11/18 04:35 PT 13.2 secs (9.9-12.6) H 10/09/18 21:58 INR 1.2 (0.8-1.2) 10/09/18 21:58 Sodium 136 mmol/L (135-145) 10/11/18 04:35 Potassium 3.8 mmol/L (3.5-5.0) 10/11/18 04:35 Chloride 103 mmol/L (101-111) 10/11/18 04:35 Carbon Dioxide 23 mmol/L (21-32) 10/11/18 04:35 Anion Gap 10.0 (6-13) 10/11/18 04:35 BUN 55 mg/dL (6-20) H 10/11/18 04:35 Creatinine 1.9 mg/dL (0.6-1.2) H 10/11/18 04:35 Estimated GFR (MDRD) 36 (>89) L 10/11/18 04:35 Glucose 131 mg/dL (70-100) H 10/11/18 04:35 Lactic Acid 2.7 mmol/L (0.5-2.2) H 10/10/18 05:25 Calcium 7.8 mg/dL (8.5-10.3) L 10/11/18 04:35 Phosphorus 3.9 mg/dL (2.5-4.6) 10/10/18 05:25 Magnesium 1.9 mg/dL (1.7-2.8) 10/11/18 04:35 Total Bilirubin 1.2 mg/dL (0.2-1.0) H 10/11/18 04:35 AST 75 IU/L (10-42) H 10/11/18 04:35 ALT 59 IU/L (10-60) 10/11/18 04:35 Alkaline Phosphatase 43 IU/L (42-121) 10/11/18 04:35 Total Creatine Kinase 378 IU/L (22-269) H 10/09/18 14:20 CK-MB (CK-2) 6.2 ng/mL (0.6-6.3) 10/09/18 14:20 Troponin I < 0.04 ng/mL (<0.49) 10/09/18 14:20 Total Protein 5.7 g/dL (6.7-8.2) L 10/11/18 04:35 Albumin 2.8 g/dL (3.2-5.5) L 10/11/18 04:35 Globulin 2.9 g/dL (2.1-4.2) 10/11/18 04:35 Albumin/Globulin Ratio 1.0 (1.0-2.2) 10/11/18 04:35 Lipase 64 U/L (22-51) H 10/09/18 14:20 Vitamin B12 257 pg/mL (180-914) 10/10/18 05:25 Folate 8.79 ng/mL (5.90 - >24.8) 10/10/18 05:25 Urine Color DARK YELLOW 10/09/18 17:30 Urine Clarity CLEAR (CLEAR) 10/09/18 17:30 Urine pH 6.5 PH (5.0-7.5) 10/09/18 17:30 Ur Specific [place] 1.010 (1.002-1.030) 10/09/18 17:30 Urine Protein TRACE mg/dL (NEGATIVE) 10/09/18 17:30 Urine Glucose (UA) NEGATIVE mg/dL (NEGATIVE) 10/09/18 17:30 Urine Ketones TRACE mg/dL (NEGATIVE) 10/09/18 17:30 Urine Occult Blood NEGATIVE (NEGATIVE) 10/09/18 17:30 Urine Nitrite NEGATIVE (NEGATIVE) 10/09/18 17:30 Urine Bilirubin NEGATIVE (NEGATIVE) 10/09/18 17:30 Urine Urobilinogen 1 (NORMAL) E.U./dL (NORMAL) 10/09/18 17:30 Ur Leukocyte Esterase NEGATIVE (NEGATIVE) 10/09/18 17:30 Ur Microscopic Review NOT INDICATED 10/09/18 17:30 Urine Culture Comments NOT INDICATED 10/09/18 17:30 Nasal Screen MRSA (PCR) NEGATIVE (NEGATIVE) 10/09/18 21:58 Ethyl Alcohol 104.8 mg/dL 10/09/18 14:20 Sepsis Event Note (H) - Evaluation Current Stage of Sepsis: Sepsis Possible source of Sepsis: positive: GI tract/intra-abdominal - Sepsis Criteria Sepsis Criteria: Suspected or Documented, Recorded Temperature greater than 38.3C or Less than 36C, Recorded Heart Rate greater than 90 bpm, WBC count greater than 12,000 or less than 4000, SBP less than 90 mmHg, Metabolic: lactate > 2 mmol/L
[2018-10-11] MEDS: PRENATAL VITAMIN TABLET PO SCH (08:36)
[2018-10-11] MEDS: THIAMINE 100 MG TABLET PO SCH (08:36)
[2018-10-11] MEDS: MORPHINE ER 15 MG TABLET PO SCH ×2 (08:36→20:24)
[2018-10-11 08:41] LABS: % IRON SATURATION 4 % (20-50); IRON 6 ug/dL (45-182); TOTAL IRON BINDING CAPACITY 169 ug/dL (250-450); TRANSFERRIN 121 mg/dL (180-329)
[2018-10-11] MEDS: BENZOCAINE/MENTHOL LOZENGE MM PRN (23:57)
[2018-10-12] MEDS: PIPERACILLIN/TAZOBACTAM 3.375 GM in SODIUM CHLORIDE 0.9% MINIBAG 100 ML IV SCH ×3 (01:39→18:12)
[2018-10-12] MEDS: SODIUM CHLORIDE 0.9% 1,000 ML IV SCH ×2 (05:23→14:50)
[2018-10-12] MEDS: BENZOCAINE/MENTHOL LOZENGE MM PRN (05:47)
[2018-10-12] MEDS: SODIUM CHLORIDE FLUSH 0.9% 10 ML SYRINGE IVP PRN (05:48)
[2018-10-12] MEDS: SODIUM CHLORIDE FLUSH 0.9% 10 ML SYRINGE IVP SCH ×2 (05:50→18:14)
[2018-10-12] MEDS: PANTOPRAZOLE 40 MG VIAL IVP SCH (06:00)
[2018-10-12 06:50] LABS: BASOPHILS % (AUTO) 0.3 %; EOSINOPHILS % (AUTO) 2.4 %; HGB - HEMOGLOBIN 9.5 g/dL (14.0-18.0); MEAN CORPUSCULAR HEMOGLOBIN 35.8 pg (27.0-31.0); MEAN CORPUSCULAR VOLUME 105.4 fL (80.0-94.0); MEAN PLATELET VOLUME 8.5 fL (7.4-11.4); MONOCYTES % (AUTO) 14.7 %; NEUTROPHILS % (AUTO) 68.6 %; PLT - PLATELET COUNT 95 10^3/uL (130-450); RED BLOOD COUNT 2.64 10^6/uL (4.70-6.10); RED CELL DISTRIBUTION WIDTH 12.9 % (12.0-15.0)
[2018-10-12 07:05] LABS: ALBUMIN 2.7 g/dL (3.2-5.5); BILIRUBIN,TOTAL 1.1 mg/dL (0.2-1.0); CALCIUM 8.3 mg/dL (8.5-10.3); CREATININE 1.4 mg/dL (0.6-1.2); MAGNESIUM 1.6 mg/dL (1.7-2.8); TOTAL PROTEIN 5.5 g/dL (6.7-8.2)
[2018-10-12 07:22] LABS: ABNORMAL LYMPHS % (MANUAL) 0 %
[2018-10-12 08:45] LABS: BAND NEUTROPHILS % (MANUAL) 26 %; BASOPHILS % (MANUAL) 1 %; EOSINOPHILS # (MANUAL) 0.2 10^3/uL (0-0.7); LYMPHOCYTES # (MANUAL) 0.9 10^3/uL (1.5-3.5); LYMPHOCYTES % (MANUAL) 21 %; MONOCYTES # (MANUAL) 0.6 10^3/uL (0.0-1.0); NEUTROPHILS # (MANUAL) 2.4 10^3/uL (1.5-6.6); NEUTROPHILS % (MANUAL) 33 %
[2018-10-12 08:46] LABS: DIFFERENTIAL COMMENT MANUAL DIFFERENTIAL
[2018-10-12] MEDS: THIAMINE 100 MG TABLET PO SCH (09:27)
[2018-10-12] MEDS: PRENATAL VITAMIN TABLET PO SCH (09:28)
[2018-10-12] MEDS: MORPHINE ER 15 MG TABLET PO SCH ×2 (09:28→20:40)
[2018-10-12] MEDS: ACETAMINOPHEN 325 MG TABLET PO PRN ×2 (12:01→18:22)
[2018-10-12] MEDS: FERROUS GLUCONATE 324 MG TABLET PO SCH (12:01)
--- NOTE | 2018-10-12 18:32 | PROVIDER PROGRESS NOTE ---
Assessment/Plan - Problem List (1) Colitis Assessment/Plan: Improving clinically. Will advmoses diey to pureed. Continue iv fluids. Poss DCh tomorrow, if bowels continue to improve. Continue antibiotic. (2) Alcohol withdrawal Qualifiers: Complication of substance-induced condition: uncomplicated Qualified Code(s): F10.230 - Alcohol dependence with withdrawal, uncomplicated Assessment/Plan: Librium 1.5 days was successful in getting him through the likely days of withdrawal. he has voiced to that he wants to quit abusing alcohol, resources were provided. (3) ALLA (acute kidney injury) Assessment/Plan: Resolving with several days of iv hydration. Will stop iv fluids tomorrow. (4) Dehydration Assessment/Plan: As in #3. (5) Chronic back pain Qualifiers: Back pain location: low back pain Assessment/Plan: Stable on his meds. (6) Macrocytic anemia Assessment/Plan: On vitamins (7) Pancytopenia Assessment/Plan: Due to alcohol abuse. Still abnormal but stable. (8) Sepsis Assessment/Plan: Resolved - Current Meds Current Meds: Current Medications Generic Name Dose Route Start Last Admin Trade Name Freq PRN Reason Stop Dose Admin Acetaminophen 650 mg 10/10/18 10:45 10/12/18 18:22 Tylenol PO 650 mg Q4HR PRN Administration Pain or Fever > 38C (100.4F) Ferrous Gluconate 324 mg 10/12/18 10:00 10/12/18 12:01 Fergon PO 324 mg DAILYWM DANETTE Administration Sodium Chloride 1,000 mls @ 100 mls/hr 10/09/18 22:00 10/12/18 14:50 Normal Saline 0.9% IV 100 mls/hr .Q10H DANETTE Administration Piperacillin Sod/Tazobactam 100 mls @ 25 mls/hr 10/10/18 02:00 10/12/18 18:12 Sod 3.375 gm/ Sodium Chloride IV 25 mls/hr Q8H DANETTE Administration Morphine Sulfate 15 mg 10/09/18 23:00 10/12/18 09:28 PO 15 mg BID DANETTE Administration Pantoprazole Sodium 40 mg 10/10/18 07:00 10/12/18 06:00 Protonix IVP 40 mg QDAC DANETTE Administration Multivit/Folic Acid/Iron 1 tab 10/10/18 09:00 10/12/18 09:28 Trinatal Rx 1 PO 1 tab DAILY DANETTE Administration Sodium Chloride 10 ml 10/10/18 01:00 10/12/18 18:14 Normal Saline Flush 0.9% IVP 10 ml [id number],[id number],1700 DANETTE Administration Sodium Chloride 10 ml 10/09/18 21:04 10/12/18 05:48 Normal Saline Flush 0.9% IVP 10 ml PRN PRN Administration NEEDED PER PROVIDER ORDERS Thiamine HCl 100 mg 10/10/18 09:00 10/12/18 09:27 Vitamin B-1 PO 100 mg DAILY DANETTE Administration Throat Lozenges 1 lozenge 10/11/18 23:28 10/12/18 05:47 Cepacol MM 1 lozenge Q2HR PRN Administration Throat pain - Lab Result Fish Bone Diagrams: 10/12/18 06:20 10/12/18 06:20 - Additional Planning My Orders: My Active Orders 10/12/18 Evaluate and Treat OT [OT] Routine Evaluate and Treat PT [PT] Routine 10/12/18 10:00 Ferrous Gluconate [Fergon] 324 mg PO DAILYWM 10/12/18 Dinner DIET [Dysphagia Puree Diet] [DIET] 10/13/18 05:00 MAGNESIUM [CHEM] DAILYLAB Subjective - Subjective Patient Reports: Feeling Better, Resting Comfortably, Other (Less gas, no more cramps, no BM yet today, decreased from 3 yesterday) Objective Vital Signs: Vital Signs - 24 hr 10/11/18 10/11/18 10/11/18 19:00 20:20 21:00 Temperature 36.8 C Heart Rate [ 115 H 115 H 101 H Monitoring electrodes] Respiratory 12 12 12 Rate Blood Pressure 97/59 L 110/66 92/73 [Left Brachial artery] Blood Pressure [Right Brachial artery] O2 Saturation 95 96 10/11/18 10/11/18 10/12/18 22:00 23:00 00:00 Temperature 36.7 C Heart Rate [ 115 H 102 H 105 H Monitoring electrodes] Respiratory 19 13 12 Rate Blood Pressure [Left Brachial artery] Blood Pressure 103/61 125/84 H 103/74 [Right Brachial artery] O2 Saturation 93 93 95 10/12/18 10/12/18 10/12/18 05:00 07:40 12:54 Temperature 36.3 C L 36.6 C 36.6 C Heart Rate [ 95 93 83 Monitoring electrodes] Respiratory 16 16 16 Rate Blood Pressure [Left Brachial artery] Blood Pressure 124/84 H 122/79 112/70 [Right Brachial artery] O2 Saturation 97 96 95 10/12/18 16:12 Temperature 36.6 C Heart Rate [ 85 Monitoring electrodes] Respiratory 14 Rate Blood Pressure 105/64 [Left Brachial artery] Blood Pressure [Right Brachial artery] O2 Saturation 95 Oxygen O2 Source Room air Oxygen Flow Rate 2 I&O (Last 24 Hrs): Intake and Output Totals x24h 10/10/18 10/11/18 10/12/18 23:59 23:59 23:59 Intake Total 3036.667 7743.333 2661.667 Output Total 2050 294 1872 Balance 9953.891 6984.333 1111.667 General: Alert, Oriented x3 HEENT: Mucous membr. moist/pink Neck: Supple, No JVD Neuro: Non Focal Cardiovascular: Regular rate Respiratory: No respiratory distress Abdomen: Other (Distended, non-tender, no typany, possible hepatomegaly.) Extremities: No edema - Results Results: Laboratory Results WBC 4.0 x10^3/uL (4.8-10.8) L 10/12/18 06:20 RBC 2.64 10^6/uL (4.70-6.10) L 10/12/18 06:20 Hgb 9.5 g/dL (14.0-18.0) L 10/12/18 06:20 Hct 27.8 % (42.0-52.0) L 10/12/18 06:20 MCV 105.4 fL (80.0-94.0) H 10/12/18 06:20 MCH 35.8 pg (27.0-31.0) H 10/12/18 06:20 MCHC 34.0 g/dL (32.0-36.0) 10/12/18 06:20 RDW 12.9 % (12.0-15.0) 10/12/18 06:20 Plt Count 95 10^3/uL (130-450) L 10/12/18 06:20 MPV 8.5 fL (7.4-11.4) 10/12/18 06:20 Neut # (Auto) Not Reportable 10/12/18 06:20 Lymph # (Auto) Not Reportable 10/12/18 06:20 [place] # (Auto) Not Reportable 10/12/18 06:20 Eos # (Auto) Not Reportable 10/12/18 06:20 Baso # (Auto) Not Reportable 10/12/18 06:20 Absolute Nucleated RBC Not Reportable 10/12/18 06:20 Total Counted 100 10/12/18 06:20 Band Neuts % (Manual) 26 % (0-10) H 10/12/18 06:20 Reactive Lymphs % (Man) 1 % 10/12/18 06:20 Abnorm Lymph % (Manual) 0 % 10/12/18 06:20 Metamyelocytes % 2 % (-0) H 10/11/18 04:35 Myelocytes % 2 % (-0) H 10/11/18 04:35 Nucleated RBC % Not Reportable 10/12/18 06:20 Neutrophils # (Manual) 2.4 10^3/uL (1.5-6.6) 10/12/18 06:20 Lymphocytes # (Manual) 0.9 10^3/uL (1.5-3.5) L 10/12/18 06:20 Monocytes # (Manual) 0.6 10^3/uL (0.0-1.0) 10/12/18 06:20 Eosinophils # (Manual) 0.2 10^3/uL (0-0.7) 10/12/18 06:20 Basophils # (Manual) 0.0 10^3/uL (0-0.1) 10/12/18 06:20 Differential Comment MANUAL DIFFERENTIAL 10/12/18 06:20 WBC Morphology 2+ TOXIC GRANULATION (NORMAL) 10/12/18 06:20 Platelet Estimate DECREASED (<130,000) (NORMAL) 10/11/18 04:35 Platelet Morphology NORMAL APPEARANCE (NORMAL) 10/09/18 21:58 RBC Morph Micro Appear NORMAL APPEARANCE (NORMAL) 10/11/18 04:35 PT 13.2 secs (9.9-12.6) H 10/09/18 21:58 INR 1.2 (0.8-1.2) 10/09/18 21:58 Sodium 137 mmol/L (135-145) 10/12/18 06:20 Potassium 3.6 mmol/L (3.5-5.0) 10/12/18 06:20 Chloride 107 mmol/L (101-111) 10/12/18 06:20 Carbon Dioxide 20 mmol/L (21-32) L 10/12/18 06:20 Anion Gap 10.0 (6-13) 10/12/18 06:20 BUN 46 mg/dL (6-20) H 10/12/18 06:20 Creatinine 1.4 mg/dL (0.6-1.2) H 10/12/18 06:20 Estimated GFR (MDRD) 52 (>89) L 10/12/18 06:20 Glucose 80 mg/dL (70-100) 10/12/18 06:20 Lactic Acid 1.4 mmol/L (0.5-2.2) 10/11/18 08:07 Calcium 8.3 mg/dL (8.5-10.3) L 10/12/18 06:20 Phosphorus 3.9 mg/dL (2.5-4.6) 10/10/18 05:25 Magnesium 1.6 mg/dL (1.7-2.8) L 10/12/18 06:20 Iron 6 ug/dL (45-182) L 10/11/18 08:07 TIBC 169 ug/dL (250-450) L 10/11/18 08:07 % Saturation 4 % (20-50) L 10/11/18 08:07 Transferrin 121 mg/dL (180-329) L 10/11/18 08:07 Total Bilirubin 1.1 mg/dL (0.2-1.0) H 10/12/18 06:20 AST 68 IU/L (10-42) H 10/12/18 06:20 ALT 50 IU/L (10-60) 10/12/18 06:20 Alkaline Phosphatase 44 IU/L (42-121) 10/12/18 06:20 Total Creatine Kinase 378 IU/L (22-269) H 10/09/18 14:20 CK-MB (CK-2) 6.2 ng/mL (0.6-6.3) 10/09/18 14:20 Troponin I < 0.04 ng/mL (<0.49) 10/11/18 08:07 Total Protein 5.5 g/dL (6.7-8.2) L 10/12/18 06:20 Albumin 2.7 g/dL (3.2-5.5) L 10/12/18 06:20 Globulin 2.8 g/dL (2.1-4.2) 10/12/18 06:20 Albumin/Globulin Ratio 1.0 (1.0-2.2) 10/12/18 06:20 Lipase 64 U/L (22-51) H 10/09/18 14:20 Vitamin B12 257 pg/mL (180-914) 10/10/18 05:25 Folate 8.79 ng/mL (5.90 - >24.8) 10/10/18 05:25 Urine Color DARK YELLOW 10/09/18 17:30 Urine Clarity CLEAR (CLEAR) 10/09/18 17:30 Urine pH 6.5 PH (5.0-7.5) 10/09/18 17:30 Ur Specific [place] 1.010 (1.002-1.030) 10/09/18 17:30 Urine Protein TRACE mg/dL (NEGATIVE) 10/09/18 17:30 Urine Glucose (UA) NEGATIVE mg/dL (NEGATIVE) 10/09/18 17:30 Urine Ketones TRACE mg/dL (NEGATIVE) 10/09/18 17:30 Urine Occult Blood NEGATIVE (NEGATIVE) 10/09/18 17:30 Urine Nitrite NEGATIVE (NEGATIVE) 10/09/18 17:30 Urine Bilirubin NEGATIVE (NEGATIVE) 10/09/18 17:30 Urine Urobilinogen 1 (NORMAL) E.U./dL (NORMAL) 10/09/18 17:30 Ur Leukocyte Esterase NEGATIVE (NEGATIVE) 10/09/18 17:30 Ur Microscopic Review NOT INDICATED 10/09/18 17:30 Urine Culture Comments NOT INDICATED 10/09/18 17:30 Nasal Screen MRSA (PCR) NEGATIVE (NEGATIVE) 10/09/18 21:58 Ethyl Alcohol 104.8 mg/dL 10/09/18 14:20 Sepsis Event Note (H) - Evaluation Current Stage of Sepsis: Sepsis Possible source of Sepsis: positive: GI tract/intra-abdominal - Sepsis Criteria Sepsis Criteria: Suspected or Documented, Recorded Temperature greater than 38.3C or Less than 36C, Recorded Heart Rate greater than 90 bpm, WBC count greater than 12,000 or less than 4000, SBP less than 90 mmHg, Metabolic: lactate > 2 mmol/L
[2018-10-12] MEDS ORDERED: LORazepam 1 MG TABLET PO SCH (23:57)
[2018-10-13] MEDS: SODIUM CHLORIDE 0.9% 1,000 ML IV SCH (00:56)
[2018-10-13] MEDS: PIPERACILLIN/TAZOBACTAM 3.375 GM in SODIUM CHLORIDE 0.9% MINIBAG 100 ML IV SCH (01:35)
[2018-10-13] MEDS: SODIUM CHLORIDE FLUSH 0.9% 10 ML SYRINGE IVP SCH ×2 (01:52→08:30)
[2018-10-13] MEDS: BENZOCAINE/MENTHOL LOZENGE MM PRN (03:55)
[2018-10-13 05:54] LABS: BASOPHILS % (AUTO) 0.5 %; HGB - HEMOGLOBIN 9.5 g/dL (14.0-18.0)
[2018-10-13 06:02] LABS: EOSINOPHILS % (AUTO) 2.3 %; LYMPHOCYTES % (AUTO) 15.4 %; MEAN CORPUSCULAR HGB CONC 33.2 g/dL (32.0-36.0); MEAN CORPUSCULAR VOLUME 105.4 fL (80.0-94.0); MEAN PLATELET VOLUME 8.2 fL (7.4-11.4); MONOCYTES % (AUTO) 22.2 %; NEUTROPHILS % (AUTO) 59.6 %; PLT - PLATELET COUNT 140 10^3/uL (130-450); RED BLOOD COUNT 2.72 10^6/uL (4.70-6.10); WHITE BLOOD COUNT 3.9 x10^3/uL (4.8-10.8)
[2018-10-13 06:03] LABS: ABNORMAL LYMPHS % (MANUAL) 0 %
[2018-10-13 06:07] LABS: ALBUMIN 2.8 g/dL (3.2-5.5); CALCIUM 8.3 mg/dL (8.5-10.3); MAGNESIUM 1.4 mg/dL (1.7-2.8); TOTAL PROTEIN 5.6 g/dL (6.7-8.2)
[2018-10-13] MEDS ORDERED: POTASSIUM CHLORIDE INJ 40 MEQ in SODIUM CHLORIDE 0.9% 480 ML IV ONE ×2 (06:19→07:30)
[2018-10-13] MEDS ORDERED: MAGNESIUM SULFATE 2 GRAM 2 GM/50 ML BAG IV ONE (06:20)
[2018-10-13 06:26] LABS: BAND NEUTROPHILS % (MANUAL) 11 %; LYMPHOCYTES # (MANUAL) 0.5 10^3/uL (1.5-3.5); LYMPHOCYTES % (MANUAL) 12 %; METAMYELOCYTES % (MANUAL) 1 %; MONOCYTES # (MANUAL) 0.2 10^3/uL (0.0-1.0); MYELOCYTES % (MANUAL) 1 %; NEUTROPHILS # (MANUAL) 3.1 10^3/uL (1.5-6.6); NEUTROPHILS % (MANUAL) 69 %; PLATELET ESTIMATE, MANUAL NORMAL (130-450,000) (NORMAL); RBC MORPHOLOGY (MULTIPLE) NORMAL APPEARANCE (NORMAL)
[2018-10-13 06:27] LABS: DIFFERENTIAL COMMENT MANUAL DIFFERENTIAL
[2018-10-13] MEDS: SODIUM CHLORIDE FLUSH 0.9% 10 ML SYRINGE IVP PRN (06:31)
[2018-10-13] MEDS: PANTOPRAZOLE 40 MG VIAL IVP SCH (06:31)
[2018-10-13] MEDS: FERROUS GLUCONATE 324 MG TABLET PO SCH (07:47)
[2018-10-13] MEDS: THIAMINE 100 MG TABLET PO SCH (08:30)
[2018-10-13] MEDS: PRENATAL VITAMIN TABLET PO SCH (08:30)
[2018-10-13] MEDS: MORPHINE ER 15 MG TABLET PO SCH (08:30)
[2018-10-13] MEDS ORDERED: CIPROFLOXACIN 250 MG TABLET PO SCH (09:00)
[2018-10-13] MEDS ORDERED: MAGNESIUM OXIDE 400 MG TABLET PO SCH (12:00)
[2018-10-13 12:39] VITALS: BP 127/85
--- NOTE | 2018-10-13 14:07 | Discharge Plan ---
Discharge Plan Disposition: Home, Self Care Condition: Stable Prescriptions: Ciprofloxacin [Cipro] 500 mg PO BID #6 tablet Ferrous Gluconate [Iron] 240 mg PO DAILY #30 tablet Magnesium Oxide [Mag Ox] 400 mg PO DAILY #7 tablet Thiamine [Vitamin B-1] 100 mg PO DAILY #30 tablet Diet: Soft Activity Restrictions: Activity as Tolerated Shower Restrictions: No Driving Restrictions: No Instruction Topics: Ciprofloxacin tablets Additional Instructions or Follow Up instructions: You were admitted with an infection of your intestinal wall, causing sepsis and dehydration which also gave your kidney's stress. You were found to be low in electrolytes, magnesium, Thiamine vitamin and Iron. You are being discharged with prescriptions for several more days of antibiotics, a week of magnesium and a month of Iron and Thiamine vitamin replacement. You should stay well hydrated and now eat a soft diet, easily digestible food, avoiding fiber and dairy until you can tolerate those. A release from work was also provided for you. Resume your other medications, but remain off the HCTZ, which can add to your dehydration. See your PCP in follow up in 5-7 days. If you have new or worsening symptoms, call your PCP or come to the ER. No Smoking: If you smoke, Please STOP! Call for help. Follow-up with: Vito Foley MD [Primary Care Provider] -
--- NOTE | 2018-10-14 15:37 | DISCHARGE SUMMARY ---
"Discharge Summary Admit Date: 10/09/18 Discharge Date: 10/13/18 Discharging Provider: Jaja Morrell MD Code Status: Attempt Resuscitation Condition at Discharge: Stable Discharge Disposition: 01 Home, Self Care - DIAGNOSES Admission Diagnoses: 1) Sepsis 2) Colitis 3) ALLA 4) Dehydration 5) Alcohol withdrawal 6) Alcohol abuse history 7) HTN history 8) Chronic back pain Discharge Diagnoses with Status of Each Condition: 1) Sepsis. He had hypotension (BP 50) in the ER, tachycardia, elevated WBC to 17, Lactic acid level of 4.5 and was felt to be septic, with colitis as the source. He required admission to the ICU, for aggressive resuscitation with iv crystalloids, bowel rest and starting iv Zosyn to treat the colitis. After 3 days, his iv fluids were stopped, as he was able to have his diet advanced and could hydrate and take in nutrition. At discharge, his HCTZ was recommended to be stopped, and he was to finish a course of po Cipro antibiotics for the colitis. Because of his resting tachycardia at admission, he had an Echo done that showed normal chamber sizes, normal LVEF and minimal pulmonary HTN with PA pressure of 38 mmHg. 2) Colitis. The CT of the abdomen/pelvis showed stranding in the colon bell, consistent with mild colitis. He was put on antiemetics, had bowel rest, advanced to clear liquids only, his liquid stool was tested and was neg for C. diff and bacteria, so he was started on Imodium prn which helped decrease his BMs from >6 liquid stools per day to one formed stool per day. He was on iv Zosyn for 3 days and transitioned to po Cipro at discharge to take for 4 more day. He was advised a soft, bland, low-fiber and no dairy diet. A release from work for 3 days was provided. 3) Alcohol withdrawal. The patient was tremulous and reported usually drinking a fifth of Vodka day, then just 1 glass before admission and felt he was starting to withdrawal. He was put on scheduled Librium po, for 2 days, to transition through this period of potential withdrawal and had a good CIWA score with this management. He was seen by SW and given resources for alcohol abuse cessation, and said he was motivated to stop. He was on oral Thiamine and a multivitamin while here and these were continued at discharge. 4) ALLA. The elevated BUN/creat of 38/1.6 were felt to be from dehydration and returned to normal BUN/creat after iv hydration. 5) Dehydration. This was felt to be from fluid and electrolyte losses due to diarrhea and vomiting. He was iv hydration, as above. He was (+) 7L during this admission. His BP medication HCTZ was on hold and not restarted at discharge. 6) Chronic back pain. He was kept on his scheduled narcotic pain meds. 7) Macrocytic anemia. His Hgb was 13, dropped to 9.5 with an MCV of 105, felt to be due to vitamin deficiency and alcohol use. He was started on a daily Iron and Thiamine replacement. 8) Pancytopenia. This was felt to be from alcohol abuse. There were no signs of bleeding or any dyspnea from the anemia, while here. He was discharged with a WBC of 3.9, Hemoglobin 9.5 and platelet count at its lowest was 82, and was 140 at discharge. 9) Hypomagnesemia. He was started on oral replacement and discharged with this. - HPI History of Present Illness: He is a 58 y/o male who presented to the ED with complain of nausea and vomiting and abdominal cramps. His symptoms have been going on daily for the past couple of weeks. However it seemed worse today so he came to the ED. In addition he had been dizzy and almost fell a couple of times. He has been unable to keep down food or his medications. He denied chest pain, dyspnea, fever, chills or lower extremity swelling. He reports some balance issues and would sometimes use a cane to get around the house. During the admission exam, the patient was intermittently tremulous. He has history of alcohol abuse and usually drinks a fifth of vodka daily. Today he drank a glass of vodka. He reports history of alcohol withdrawal and richard checked himself into a rehab facility before. Upon presentation in the ED, he was found to have a SBP as low as 50, a lactic acid of 4.6 and a WBC of 15. He underwent CT of abdomen and pelvis. - CONSULTS | PROCEDURES Consultations: None Procedures: None - HOSPITAL COURSE Hospital Course: As described in each Diagnosis above. - ALLERGIES Allergies/Adverse Reactions: Allergies Allergy/AdvReac Type Severity Reaction Status Date / Time No Known Drug Allergies Allergy Verified 10/14/18 11:26 - MEDICATIONS Home Medications: Ambulatory Orders Medication Instructions Recorded Confirmed Losartan Potassium [Cozaar] 100 mg ORAL DAILY 12/21/12 10/14/18 Omeprazole [PriLOSEC] 10 mg ORAL DAILY 12/21/12 10/14/18 Morphine ER 15 mg PO BID 09/20/15 10/14/18 oxyCODONE [Roxicodone] 5 mg PO TID 09/20/15 10/14/18 Ciprofloxacin [Cipro] 500 mg PO BID #6 tablet 10/13/18 10/14/18 Ferrous Gluconate [Iron] 240 mg PO DAILY #30 tablet 10/13/18 10/14/18 Magnesium Oxide [Mag Ox] 400 mg PO DAILY #7 tablet 10/13/18 10/14/18 Thiamine [Vitamin B-1] 100 mg PO DAILY #30 tablet 10/13/18 10/14/18 - PHYSICAL EXAM AT DISCHARGE General Appearance: positive: No acute distress Eyes Bilateral: positive: Normal inspection ENT: positive: No signs of dehydration Neck: positive: Nml inspection Respiratory: positive: No respiratory distress, Breath sounds nml Cardiovascular: positive: Regular rate & rhythm Abdomen: positive: Nml bowel sounds, Other (Mildly distended, not hypertympanic, no tenderness) Extremities: positive: No pedal edema Neurologic/Psychiatric: positive: Oriented x3, Other (Non-focal exam.) - LABS Result Diagrams: 10/13/18 05:22 10/13/18 12:16 - SEPSIS Current Stage of Sepsis: Sepsis Possible source of Sepsis: GI tract/intra-abdominal Sepsis Criteria: Suspected or Documented, Recorded Temperature greater than 38.3C or Less than 36C, Recorded Heart Rate greater than 90 bpm, WBC count greater than 12,000 or less than 4000, SBP less than 90 mmHg, Metabolic: lactate > 2 mmol/L - FOLLOW UP Follow Up: See PCP in 5-10 days. - TIME SPENT Time Spent in Discharge (Minutes): 60"
== END 2018-10-13 14:50 | disposition home or self-care (01) | DRG 871 ==
LOC: ED 14:30 → ICU 21:04 → MS2 10-12 01:17
PROVIDERS: ADMIT Internal Medicine; ATTEND Internal Medicine
DX: A41.9 Sepsis, unspecified organism (principal); R65.21 Severe sepsis with septic shock; N17.9 Acute kidney failure, unspecified; F10.239 Alcohol dependence with withdrawal, unspecified; D61.818 Other pancytopenia; K52.9 Noninfective gastroenteritis and colitis, unspecified; I10 Essential (primary) hypertension; G89.29 Other chronic pain; M54.5 Low back pain; K59.09 Other constipation; K21.9 Gastro-esophageal reflux disease without esophagitis; Z90.49 Acquired absence of other specified parts of digestive tract; E86.0 Dehydration; E83.42 Hypomagnesemia
CPT/HCPCS: 36415; 71045; 74177; 80053; 80320; 81003; 82550; 82553; 82607; 82746; 83540; 83605; 83690; 83735; 84100; 84132; 84466; 84484; 85025; 85610; 87040; 87150; 93005; 93306; 96361; 96365; 96367; 96375; 96376; 99285; 99291; A9270; J2060; J2270; J3411; J7040; J7120; J8499; Q9967; 81001; 87086

== ENCOUNTER 2018-10-14 11:10 | Inpatient (IN) | payer OTHER ==
--- NOTE | 2018-10-14 11:30 | ED Physician Documentation ---
History of Present Illness - Stated complaint Stated Complaint: DIFFICULTY BREATHING - Chief complaint Chief Complaint: Resp - History obtained from History obtained from: Patient - History of Present Illness Timing: Last night - Additonal information Additional information: 58-year-old male was admitted in the hospital for profound dehydration after a week's worth of vomiting with alcohol intake. The patient received 7 L of saline while in the hospital and was discharged yesterday and yesterday evening began to develop some increasing shortness of breath. This morning he is feeling a bit distressed by the shortness of breath. He has had something similar before with bronchitis and has had use an inhaler previously. He has had some Ativan previously with alcohol withdrawal and states that he does not believe he had any of that while he was here in the hospital. Review of Systems Constitutional: reports: Fatigue. denies: Fever, Chills Eyes: denies: Decreased vision Ears: denies: Ear pain Nose: denies: Rhinorrhea / runny nose, Congestion Throat: reports: Sore throat Cardiac: denies: Chest pain / pressure, Palpitations Respiratory: reports: Dyspnea, Cough GI: denies: Abdominal Pain, Nausea, Vomiting : denies: Dysuria, Frequency Skin: denies: Rash Musculoskeletal: reports: Extremity swelling. denies: Neck pain, Back pain, Extremity pain Neurologic: reports: Generalized weakness. denies: Focal weakness, Numbness PD PAST MEDICAL HISTORY - Past Medical History Cardiovascular: Hypertension GI: GERD Musculoskeletal: Chronic back pain - Past Surgical History Past Surgical History: Yes General: Appendectomy, Colonoscopy Ortho: Arthroscopic surgery (right knee) - Present Medications Home Medications: Ambulatory Orders Medication Instructions Recorded Confirmed Losartan Potassium [Cozaar] 100 mg ORAL DAILY 12/21/12 10/09/18 Omeprazole [PriLOSEC] 10 mg ORAL DAILY 12/21/12 10/09/18 Morphine ER 15 mg PO BID 09/20/15 10/09/18 oxyCODONE [Roxicodone] 5 mg PO TID 09/20/15 10/09/18 Ciprofloxacin [Cipro] 500 mg PO BID #6 tablet 10/13/18 Ferrous Gluconate [Iron] 240 mg PO DAILY #30 tablet 10/13/18 Magnesium Oxide [Mag Ox] 400 mg PO DAILY #7 tablet 10/13/18 Thiamine [Vitamin B-1] 100 mg PO DAILY #30 tablet 10/13/18 - Allergies Allergies/Adverse Reactions: Allergies Allergy/AdvReac Type Severity Reaction Status Date / Time No Known Drug Allergies Allergy Verified 10/14/18 11:26 - Social History Does the pt smoke?: No Smoking Status: Never smoker Does the pt drink ETOH?: Yes Does the pt have substance abuse?: No - Immunizations Immunizations are current?: No - POLST Patient has POLST: No POLST Status: Full Code PD ED PE NORMAL - Vitals Vital signs reviewed: Yes (tachy and ) - General General: Alert and oriented X 3, Well developed/nourished - HEENT HEENT: Atraumatic, PERRL, EOMI, Ears normal, Other (dry mucos membranes ) - Cardiac Cardiac: No murmur, Other (tachy ) - Respiratory Respiratory: Other (tachypneic at rest with diminshed breath sounds and scattered rales.) - Abdomen Abdomen: Soft, Non tender - Derm Derm: Normal color, Warm and dry, No rash - Extremities Extremities: No deformity, Other (There is doughy pitting edema bilaterally ) - Neuro Neuro: Alert and oriented X 3, sales and marketing associate 2-12 intact, No motor deficit, No sensory deficit, Normal speech Eye Opening: Spontaneous Motor: Obeys Commands Verbal: Oriented GCS Score: 15 - Psych Psych: Normal affect, Other (mood is aprehensive) Results - Vitals Vitals: Vital Signs - 24 hr 10/14/18 10/14/18 10/14/18 11:16 11:39 12:20 Temperature 35.9 C L Heart Rate 124 H 124 H 124 H Respiratory 22 22 18 Rate Blood Pressure 146/99 H 146/99 H 149/99 H O2 Saturation 98 98 96 10/14/18 13:29 Temperature Heart Rate 123 H Respiratory 18 Rate Blood Pressure 135/99 H O2 Saturation 96 Oxygen O2 Source Room air - EKG (time done) 1125 Rate: Rate (enter#) (122) Rhythm: Sinus tachycardia QRS: Low voltage Other comments: Other comments (borderline ST elevation V2 and V3 only ) Computer interpretation: Agree with computer - Labs Labs: Laboratory Tests 10/14/18 10/14/18 10/14/18 11:56 11:56 11:56 WBC 8.4 RBC 3.04 L Hgb 10.6 L Hct 31.7 L MCV 104.3 H MCH 35.0 H MCHC 33.5 RDW 13.0 Plt Count 212 MPV 7.5 Neut # (Auto) 5.4 Lymph # (Auto) 0.8 L [place] # (Auto) 2.1 H Eos # (Auto) 0.0 Baso # (Auto) 0.0 Absolute Nucleated RBC 0.01 Nucleated RBC % 0.2 Manual Slide Review Indicated WBC Morphology Platelet Estimate NORMAL (130-450,000) Platelet Morphology NORMAL APPEARANCE RBC Morph Micro Appear NORMAL APPEARANCE Sodium 138 Potassium 3.5 Chloride 103 Carbon Dioxide 22 Anion Gap 13.0 BUN 15 Creatinine 0.8 Estimated GFR (MDRD) 99 Glucose 127 H Calcium 8.9 Total Bilirubin 1.2 H AST 101 H ALT 67 H Alkaline Phosphatase 90 Troponin I 0.37 B-Natriuretic Peptide Total Protein 6.7 Albumin 3.3 Globulin 3.4 Albumin/Globulin Ratio 1.0 Lipase 89 H Urine Color Urine Clarity Urine pH Ur Specific [place] Urine Protein Urine Glucose (UA) Urine Ketones Urine Occult Blood Urine Nitrite Urine Bilirubin Urine Urobilinogen Ur Leukocyte Esterase Ur Microscopic Review Urine Culture Comments 10/14/18 10/14/18 12:10 12:30 WBC RBC Hgb Hct MCV MCH MCHC RDW Plt Count MPV Neut # (Auto) Lymph # (Auto) [place] # (Auto) Eos # (Auto) Baso # (Auto) Absolute Nucleated RBC Nucleated RBC % Manual Slide Review WBC Morphology Platelet Estimate Platelet Morphology RBC Morph Micro Appear Sodium Potassium Chloride Carbon Dioxide Anion Gap BUN Creatinine Estimated GFR (MDRD) Glucose Calcium Total Bilirubin AST ALT Alkaline Phosphatase Troponin I B-Natriuretic Peptide 1430 H Total Protein Albumin Globulin Albumin/Globulin Ratio Lipase Urine Color YELLOW Urine Clarity CLEAR Urine pH 6.0 Ur Specific [place] 1.010 Urine Protein NEGATIVE Urine Glucose (UA) NEGATIVE Urine Ketones TRACE Urine Occult Blood NEGATIVE Urine Nitrite NEGATIVE Urine Bilirubin NEGATIVE Urine Urobilinogen 1 (NORMAL) Ur Leukocyte Esterase NEGATIVE Ur Microscopic Review NOT INDICATED Urine Culture Comments NOT INDICATED - Rads (name of study) chest 2 view Radiology: Prelim report reviewed (Impression: 1. New diffuse vascular congestion.), EMP read indepedently, See rad report Procedures - IVC sono (time) 1135 Bedside IVC sono: IVC measures (cm) (2.26), IVC collapsed c insp (cm) (1.7), Collapsibility index (0.24), High CVP, Fluid overload PD MEDICAL DECISION MAKING - ED course Complexity details: reviewed old records, reviewed results, re-evaluated patient, considered differential, d/w patient, d/w family ED course: 58-year-old male admitted into the hospital for dehydration with persistent vomiting and alcohol withdrawal appears to have retained fluid and is now with some difficulty breathing. An IV is begun he is given Lasix by vein and diagnostics were performed. Departure - Departure Disposition: ED Place in Observation Clinical Impression: Alcohol withdrawal Qualifiers: Complication of substance-induced condition: with unspecified complication Qualified Code(s): F10.239 - Alcohol dependence with withdrawal, unspecified Congestive heart failure Qualifiers: Heart failure type: unspecified Heart failure chronicity: acute Qualified Code(s): I50.9 - Heart failure, unspecified
[2018-10-14] MEDS ORDERED: FUROSEMIDE 40 MG/4 ML VIAL IVP STA ×2 (11:41→23:42)
[2018-10-14 12:11] LABS: BASOPHILS % (AUTO) 0.3 %; EOSINOPHILS % (AUTO) 0.4 %; HGB - HEMOGLOBIN 10.6 g/dL (14.0-18.0); LYMPHOCYTES # (AUTO) 0.8 10^3/uL (1.5-3.5); MEAN CORPUSCULAR HGB CONC 33.5 g/dL (32.0-36.0); MEAN CORPUSCULAR VOLUME 104.3 fL (80.0-94.0); MEAN PLATELET VOLUME 7.5 fL (7.4-11.4); MONOCYTES # (AUTO) 2.1 10^3/uL (0.0-1.0); MONOCYTES % (AUTO) 25.3 %; NEUTROPHILS # (AUTO) 5.4 10^3/uL (1.5-6.6); PLT - PLATELET COUNT 212 10^3/uL (130-450); RED BLOOD COUNT 3.04 10^6/uL (4.70-6.10); WHITE BLOOD COUNT 8.4 x10^3/uL (4.8-10.8)
[2018-10-14 12:20] LABS: ALBUMIN 3.3 g/dL (3.2-5.5); BILIRUBIN,TOTAL 1.2 mg/dL (0.2-1.0); CALCIUM 8.9 mg/dL (8.5-10.3); CREATININE 0.8 mg/dL (0.6-1.2); TOTAL PROTEIN 6.7 g/dL (6.7-8.2)
--- NOTE | 2018-10-14 12:23 | XRAY Report ---
Reason: soa Procedure Date: 10/14/2018 Accession Number: [id number] / [id number] Procedure: XR - Chest 1 View X-Ray CPT Code: 76209 FULL RESULT: EXAM: CHEST RADIOGRAPHY EXAM DATE: 10/14/2018 11:49 AM. CLINICAL HISTORY: Nonproductive cough. Shortness of air. COMPARISON: CHEST 1 VIEW 10/09/2018 4:05 PM. TECHNIQUE: 1 view. FINDINGS: Lungs/Pleura: Diffuse interstitial abnormality. Lung volumes are low. No pneumothorax. Mediastinum: Cardiomegaly. Aortic tortuosity. Aortic atherosclerosis. Other: None. IMPRESSION: 1. New diffuse vascular congestion. RADIA
[2018-10-14] MEDS ORDERED: LORazepam 2 MG/ML VIAL IVP STA ×2 (12:36→13:15)
[2018-10-14 12:46] LABS: BILIRUBIN,URINE NEGATIVE (NEGATIVE); GLUCOSE, URINE (UA) NEGATIVE (NEGATIVE); KETONES,URINE (UA) TRACE mg/dL (NEGATIVE); LEUKOCYTE ESTERASE, URINE NEGATIVE (NEGATIVE); NITRITE,URINE NEGATIVE (NEGATIVE); OCCULT BLOOD,URINE NEGATIVE (NEGATIVE); PROTEIN,URINE NEGATIVE (NEGATIVE); UROBILINOGEN,URINE 1 (NORMAL) E.U./dL (NORMAL)
[2018-10-14 12:49] LABS: CLARITY,URINE CLEAR (CLEAR)
[2018-10-14 12:49] LABS: PLATELET ESTIMATE, MANUAL NORMAL (130-450,000) (NORMAL); PLATELET MORPHOLOGY NORMAL APPEARANCE (NORMAL); RBC MORPHOLOGY (MULTIPLE) NORMAL APPEARANCE (NORMAL)
[2018-10-14] MEDS ORDERED: PROCHLORPERAZINE 10 MG/2 ML VIAL IVP PRN (14:16)
[2018-10-14] MEDS ORDERED: METOPROLOL TARTRATE 50 MG TABLET PO STA (14:24)
[2018-10-14 16:37] LABS: AMPHETAMINE SCREEN,URINE NEGATIVE (NEGATIVE); BENZODIAZEPINES SCREEN, URINE POSITIVE (NEGATIVE); COCAINE SCREEN URINE NEGATIVE (NEGATIVE); METHADONE SCREEN, URINE NEGATIVE (NEGATIVE); METHAMPHETAMINES SCREEN, URINE NEGATIVE (NEGATIVE); MUDS CUTOFF CONCENTRATIONS CUTOFF CONC BELOW:; OPIATE SCREEN, URINE POSITIVE (NEGATIVE); OXYCODONE SCREEN, URINE POSITIVE (NEGATIVE); PROPOXYPHENE SCREEN, URINE NEGATIVE (NEGATIVE); TRICYCLIC ANTIDEPRESSANT,URINE NEGATIVE (NEGATIVE)
[2018-10-14] MEDS: MORPHINE 2 MG/ML SYRINGE IVP PRN ×2 (17:40→19:35)
[2018-10-14] MEDS: SODIUM CHLORIDE FLUSH 0.9% 10 ML SYRINGE IVP SCH (17:41)
[2018-10-14] MEDS ORDERED: FUROSEMIDE 40 MG/4 ML VIAL IVP ONE (18:01)
[2018-10-14 18:19] LABS: VBG BASE EXCESS -1.1 mmol/L (-2 - +2); VBG PCO2 34.4 mmHg (41-51); VBG PH 7.436 (7.31-7.41); VBG PO2 38.3 mmHg (25-47); VBG TOTAL CO2 23.7 mmol/L (24-29)
[2018-10-14] MEDS: SODIUM CHLORIDE FLUSH 0.9% 10 ML SYRINGE IVP PRN ×3 (18:21→20:40)
[2018-10-14] MEDS ORDERED: METOPROLOL 5 MG/5 ML VIAL IVP SCH (20:00)
--- NOTE | 2018-10-14 20:39 | HISTORY & PHYSICAL EXAMINATION ---
DATE OF SERVICE: 10/14/2018 Physician: Jaja Morrell MD HISTORY OF PRESENT ILLNESS: This is a 58-year-old white male with a history of hypertension, on losartan and HCTZ in the past, alcohol abuse with prior withdrawal, recent admission here from 10/09/2018, just discharged yesterday. He was admitted then with septic shock secondary to dehydration related to acute colitis causing nausea, vomiting and diarrhea, volume depletion and acute kidney injury. He was managed in the ICU with IV Zosyn, transitioned to p.o. Cipro, went through alcohol withdrawal managed with Librium orally, discharged on thiamine, found to have iron-deficiency anemia, requiring iron replacement. During that admission, he had bowel rest, aggressive fluid replacement with crystalloids, and in total was 7 liters positive at the time of discharge. On his last day, he described being "panicky and claustrophobic." There was concern that he was still having alcohol withdrawal, he declined staying an additional day, and was discharged. At home, over the past 24 hours, he did remain off of alcohol, was compliant with taking his Cipro, thiamine, and iron prescriptions, was compliant with his soft diet for his colitis, but developed worsening dyspnea on exertion, then severe orthopnea, and then had audible wheezing and severe air hunger, and his urged him to come to the emergency room. He was found to have CHF on chest x-ray and was also tachycardic and hypertensive, and was initially managed with IV Lasix, but has not had adequate improvement in respiratory status, is being admitted from observation status into the ICU for pulmonary edema treatment and tachycardia control. PAST MEDICAL HISTORY: Hypertension, alcohol withdrawal, recent admission for colitis with septic shock and dehydration causing ALLA, iron-deficiency anemia which was recently diagnosed, and elevated liver function tests from alcohol abuse, chronic back pain on narcotic pain meds. MEDICATIONS 1. Cipro 500 mg b.i.d. for 4 days. 2. Losartan 100 mg daily. 3. Magnesium 400 mg daily. 4. Ferrous gluconate 240 mg daily. 5. Oxycodone 5 mg t.i.d. for chronic back pain. 6. Thiamine 100 mg daily. 7. Morphine ER 15 mg p.o. b.i.d. for chronic back pain. 8. Prilosec 10 mg daily. ALLERGIES: NONE. FAMILY HISTORY: No inherited diseases, no history of heart disease in the family. SOCIAL HISTORY: The patient is a nonsmoker, who never smoked, uses no illicit drugs, has a history of alcohol abuse, usually drinks a fifth of vodka a day. Just prior to the last admission, he was only drinking 1 glass of vodka a day because of the nausea, vomiting, and diarrhea, and now he has been without any p.o. alcohol intake since 10/09/2018 (5 days). REVIEW OF SYSTEMS: There has been no fever, cough, he has no prior history of CHF, pulmonary edema, or history of coronary artery disease, and has never needed a stress test. He did not notice, until pointed out, that he has new leg edema over the past 1 day. He has no history of palpitations or syncope. At the last admission, he had an Echo done because of his hypotension and shock. This showed normal chamber sizes, normal LVEF of 70%, with grade 2 diastolic dysfunction, and high-normal PA pressure. A comprehensive review of systems was performed, the pertinent positives are listed, the rest are negative. PHYSICAL EXAMINATION GENERAL: Middle-aged white male, who is in moderate respiratory distress, using accessory muscles of respiration. VITAL SIGNS: Blood pressure was 150/99 in the emergency room, and now 140/89, heart rate 125, in sinus tachycardia. He is afebrile. Room air saturation 80%, increased to 95% on 3 liters oxygen nasal cannula. HEENT: Reveals moist oral mucosa, and he is wearing Oxymizer supplemental oxygen. NECK: Without JVD. CHEST: Has diffuse crackles bilaterally, correction up, more on the right than the left. HEART: Heart sounds are tachycardic. No audible murmur. ABDOMEN: Soft, distended, possible hepatomegaly. No guarding or rebound. Normal bowel sounds. EXTREMITIES: Edema 4+ to the mid thighs. No clubbing or cyanosis. NEUROLOGIC: Grossly intact. LABORATORY DATA: White blood count 8.4 (at discharge, he was 3.9), hemoglobin 10.6 (at discharge, 9.5), platelet count 212 (during the last hospitalization, it was 82 and 95). No INR was done today. Electrolytes are normal. BUN 15, creatinine 0.8 (at the last admission, his BUN was 39 and creatinine 1.5 on presentation). Lactic acid normal at 1.4 (at the last admission, it was 4.5). Bilirubin 1.2, AST 101, ALT 67, GGT 268, ammonia level 38 (the GGT and ammonia were not done on the last admission for comparison). Troponin is 0.37 and on repeat 0.31. BNP 1430 (no BNP was done on the last admission). Lipase elevated at 89 now (it was 64 on the last admission). Venous blood gas with pH of 7.43, pCO2 of 34. Urine tox screen showed positive opiates, oxycodone, and benzodiazepines. Serum alcohol level was not detectable. Urinalysis was unremarkable. CHEST X-RAY: Bilateral CHF. EKG: Sinus tachycardia at a rate of 122, PVC present, lateral T-wave flattening, low voltage (the low voltage is new from the last admission, and tachycardia is new). At the last admission, he had an Echo done because of his hypotension and tachycardia. This showed normal chamber sizes, normal LVEF of 70%, with grade 2 diastolic dysfunction, and high-normal PA pressure. IMPRESSION/DIAGNOSES 1. [id number] diastolic heart failure. 2. Tachycardia. 3. History of hypertension, but recent shock during volume loss and colitis. 4. Volume overload after management of recent dehydration causing acute kidney injury. 5. History of alcohol abuse with recent withdrawal, uncomplicated. 6. Iron-deficiency anemia. 7. Elevated lipase. 8. Elevated liver function tests. PLAN: Admit the patient to the ICU, on telemetry. Begin heart rate control with IV beta marita boluses. Continue with IV diuretics and use IV morphine for preload reduction and for treating his pulmonary edema and air hunger. Continue his Losartan for blood pressure control and diastolic dysfunction. Continue the treatment of his colitis with several more days of oral Cipro. Continue his plan for soft diet for easy digestibility. Recheck a limited Echo, 2-D only, to evaluate LV and RV function and to rule out pericardial effusion as the cause of the low voltage on EKG.. The elevated troponins in a flat pattern are not consistent with an acute [place], but related to the new CHF, as evidenced by the very high BNP. Follow the BNP as he is diuresing, also follow I's and O's and daily weights, magnesium level, and continue to dose this. Continue with his iron replacement and thiamine. CODE STATUS: FULL CODE. DEEP VENOUS THROMBOSIS PROPHYLAXIS: NUNU stockings and sequential compression devices. ATTESTATION: The patient is expected to be discharged or transferred to another facility within 96 hours: Yes. TD: 10/14/2018 20:08 [id number]
[2018-10-14] MEDS: FAMOTIDINE 20 MG TABLET PO SCH (21:23)
[2018-10-14] MEDS: CIPROFLOXACIN 250 MG TABLET PO SCH (21:23)
[2018-10-14] MEDS: MORPHINE ER 15 MG TABLET PO SCH (21:23)
[2018-10-14] MEDS: oxyCODONE 5 MG TABLET PO SCH (22:11)
[2018-10-15] MEDS: MORPHINE 2 MG/ML SYRINGE IVP PRN ×2 (00:16→03:05)
[2018-10-15] MEDS: SODIUM CHLORIDE FLUSH 0.9% 10 ML SYRINGE IVP SCH ×3 (00:16→20:19)
[2018-10-15] MEDS: SODIUM CHLORIDE FLUSH 0.9% 10 ML SYRINGE IVP PRN ×4 (00:17→14:20)
[2018-10-15 05:02] LABS: BASOPHILS % (AUTO) 0.4 %; EOSINOPHILS # (AUTO) 0.1 10^3/uL (0.0-0.7); EOSINOPHILS % (AUTO) 0.7 %; HGB - HEMOGLOBIN 10.1 g/dL (14.0-18.0); LYMPHOCYTES % (AUTO) 11.8 %; MEAN CORPUSCULAR HEMOGLOBIN 35.1 pg (27.0-31.0); MEAN CORPUSCULAR HGB CONC 33.9 g/dL (32.0-36.0); MEAN CORPUSCULAR VOLUME 103.5 fL (80.0-94.0); MEAN PLATELET VOLUME 7.2 fL (7.4-11.4); MONOCYTES # (AUTO) 2.2 10^3/uL (0.0-1.0); MONOCYTES % (AUTO) 25.6 %; NEUTROPHILS # (AUTO) 5.2 10^3/uL (1.5-6.6); NEUTROPHILS % (AUTO) 61.5 %; PLT - PLATELET COUNT 223 10^3/uL (130-450); RED BLOOD COUNT 2.89 10^6/uL (4.70-6.10); RED CELL DISTRIBUTION WIDTH 13.2 % (12.0-15.0); WHITE BLOOD COUNT 8.5 x10^3/uL (4.8-10.8)
[2018-10-15 05:13] LABS: CREATININE 0.9 mg/dL (0.6-1.2)
[2018-10-15] MEDS ORDERED: POTASSIUM CHLORIDE 20 MEQ TABLET PO ONE ×2 (05:33→08:00)
[2018-10-15] MEDS: oxyCODONE 5 MG TABLET PO SCH ×3 (05:51→20:29)
[2018-10-15] MEDS: FUROSEMIDE 40 MG/4 ML VIAL IVP SCH ×2 (05:51→14:20)
--- NOTE | 2018-10-15 06:36 | XRAY Report ---
Reason: F/U CHF and possible R pneumonia by exam Procedure Date: 10/15/2018 Accession Number: [id number] / [id number] Procedure: XR - Chest 1 View X-Ray CPT Code: 55776 FULL RESULT: EXAM: CHEST RADIOGRAPHY EXAM DATE: 10/15/2018 06:15 AM. CLINICAL HISTORY: F/U CHF and possible R pneumonia by exam. COMPARISON: CHEST 1 VIEW 10/14/2018 11:38 AM. TECHNIQUE: 1 view. FINDINGS: Lungs/Pleura: Lung volumes are low, producing crowding of the pulmonary vasculature. No new consolidation, effusion, or pneumothorax. Mediastinum: Within exam limitations, the cardiomediastinal contour is normal. Other: None. IMPRESSION: Low lung volumes. RADIA
[2018-10-15] MEDS ORDERED: LORazepam 1 MG TABLET PO PRN (06:43)
[2018-10-15] MEDS: MAGNESIUM OXIDE 400 MG TABLET PO SCH (09:32)
[2018-10-15] MEDS: CIPROFLOXACIN 250 MG TABLET PO SCH ×2 (09:32→20:30)
[2018-10-15] MEDS: MORPHINE ER 15 MG TABLET PO SCH ×2 (09:33→20:29)
[2018-10-15] MEDS: THIAMINE 100 MG TABLET PO SCH (09:34)
[2018-10-15] MEDS: LOSARTAN 50 MG TABLET PO SCH (09:34)
[2018-10-15] MEDS: FAMOTIDINE 20 MG TABLET PO SCH ×2 (09:34→20:29)
[2018-10-15] MEDS: FERROUS GLUCONATE 324 MG TABLET PO SCH (09:34)
[2018-10-15] MEDS: POLYETHYLENE GLYCOL 3350 17 GM PACKET PO SCH (09:35)
[2018-10-15 11:03] LABS: MAGNESIUM 1.2 mg/dL (1.7-2.8)
--- NOTE | 2018-10-15 18:34 | PROVIDER PROGRESS NOTE ---
Subjective - Prog Note Date Prog Note Date: 10/15/18 Prog Note Time: 18:33 - Subjective Pt reports feeling: Improved Subjective: Feeling less and less short of breath. Starting to get anxious and wanting to go home because he feels better. He still weak and tired. Ambulating in his room. Is eating. O2 sats are now on room air and are up to 97%. Current Medications - Current Medications Current Medications: Active Medications Ciprofloxacin (Cipro) 500 mg PO BID [facility] Last Admin: 10/15/18 09:32 Dose: 500 mg Famotidine (Pepcid) 20 mg PO BID [facility] Last Admin: 10/15/18 09:34 Dose: 20 mg Ferrous Gluconate (Fergon) 324 mg PO DAILY [facility] Last Admin: 10/15/18 09:34 Dose: 324 mg Furosemide (Lasix Inj 40 Mg Vial) 40 mg IVP BIDDIURETIC [facility] Last Admin: 10/15/18 14:20 Dose: 40 mg Lorazepam (Ativan) 1 mg PO Q4H PRN PRN Reason: Anxiety Losartan Potassium (Cozaar) 100 mg PO DAILY [facility] Last Admin: 10/15/18 09:34 Dose: 100 mg Magnesium Oxide (Mag Ox) 400 mg PO DAILY [facility] Last Admin: 10/15/18 09:32 Dose: 400 mg Morphine Sulfate () 15 mg PO BID [facility] Last Admin: 10/15/18 09:33 Dose: 15 mg Morphine Sulfate (Morphine) 2 mg IVP Q2H PRN PRN Reason: Dyspnea Last Admin: 10/15/18 03:05 Dose: 2 mg Oxycodone HCl (Roxicodone) 5 mg PO TID [facility] Last Admin: 10/15/18 14:10 Dose: 5 mg Polyethylene Glycol (Miralax) 17 gm PO DAILY [facility] Last Admin: 10/15/18 09:35 Dose: 17 gm Prochlorperazine Edisylate (Compazine Inj) 10 mg IVP Q6HR PRN PRN Reason: Nausea / Vomiting Sodium Chloride (Normal Saline Flush 0.9%) 10 ml IVP PRN PRN PRN Reason: NEEDED PER PROVIDER ORDERS Last Admin: 10/15/18 14:20 Dose: 10 ml Sodium Chloride (Normal Saline Flush 0.9%) 10 ml IVP 0100,0900,1700 [facility] Last Admin: 10/15/18 09:39 Dose: 10 ml Thiamine HCl (Vitamin B-1) 100 mg PO DAILY [facility] Last Admin: 10/15/18 09:34 Dose: 100 mg Losartan Potassium [Cozaar] 100 mg ORAL DAILY 12/21/12 Omeprazole [PriLOSEC] 10 mg ORAL DAILY 12/21/12 Morphine ER 15 mg PO BID 09/20/15 oxyCODONE [Roxicodone] 5 mg PO TID 09/20/15 Objective - Vital Signs/Intake & Output Vital Signs: Vital Signs x48h Temp Pulse Resp Resp BP Pulse Ox Pulse Ox 10/15/18 16:00 37.4 C 99 17 95/73 96 10/15/18 15:00 104 H 19 111/71 97 10/15/18 14:08 97 20 106/65 98 10/15/18 14:07 18 90 L 10/15/18 13:35 22 95 10/15/18 11:56 37.6 C H 103 H 24 89/66 L 99 10/15/18 11:00 99 18 93/62 93 10/15/18 10:47 19 94 Intake & Output: Intake & Output 10/12/18 10/13/18 10/14/18 10/15/18 23:59 23:59 23:59 23:59 Intake Total 500 635 Output Total 1112 0567 [id number] -[id number] - Objective General Appearance: positive: No acute distress, Alert, Other (Pale fatigued appearing white male who looks older than stated age but comfortable sitting upright in his chair this morning) Eyes Bilateral: positive: PERRL, EOMI ENT: positive: Pharynx nml Neck: negative: Stiff neck, Carotid bruit Respiratory: positive: Chest non-tender. negative: Wheezes, Rales, Rhonchi Cardiovascular: positive: Regular rate & rhythm, JVD present, Systolic murmur. negative: Gallop/S4, Friction rub Abdomen: positive: Non-tender, No organomegaly, Nml bowel sounds, No distention Back: positive: Other (Back pain is 1 of his main limiting things. Just getting up and walking around the room really hurts. This is a chronic problem for him. It is no worse, no better than usual) Skin: positive: Warm, Dry, Pallor Extremities: positive: Non-tender, Pedal edema Neurologic/Psychiatric: positive: Oriented x3, CN's nml (2-12), Motor nml - Lab Results Fish Bones: 10/15/18 04:50 10/16/18 05:15 Other Labs: Lab Results x24hrs 10/15/18 10/15/18 10/15/18 Range/Units 04:50 04:50 04:50 WBC (4.8-10.8) x10^3/uL RBC (4.70-6.10) 10^6/uL Hgb (14.0-18.0) g/dL Hct (42.0-52.0) % MCV (80.0-94.0) fL MCH (27.0-31.0) pg MCHC (32.0-36.0) g/dL RDW (12.0-15.0) % Plt Count (130-450) 10^3/uL MPV (7.4-11.4) fL Neut # (Auto) (1.5-6.6) 10^3/uL Lymph # (Auto) (1.5-3.5) 10^3/uL Wilcox # (Auto) (0.0-1.0) 10^3/uL Eos # (Auto) (0.0-0.7) 10^3/uL Baso # (Auto) (0.0-0.1) 10^3/uL Absolute Nucleated RBC x10^3/uL Nucleated RBC % /100WBC Sodium 142 (135-145) mmol/L Potassium 3.2 L (3.5-5.0) mmol/L Chloride 100 L (101-111) mmol/L Carbon Dioxide 27 (21-32) mmol/L Anion Gap 15.0 H (6-13) BUN 15 (6-20) mg/dL Creatinine 0.9 (0.6-1.2) mg/dL Estimated GFR (MDRD) 86 L (>89) Glucose 111 H (70-100) mg/dL Calcium 9.0 (8.5-10.3) mg/dL Phosphorus 3.0 (2.5-4.6) mg/dL Magnesium 1.2 L (1.7-2.8) mg/dL Troponin I (<0.49) ng/mL B-Natriuretic Peptide 1378 H (5-100) pg/mL Nasal Screen MRSA (PCR) (NEGATIVE) Ethyl Alcohol mg/dL 10/15/18 10/15/18 10/14/18 Range/Units 04:50 02:11 18:05 WBC 8.5 (4.8-10.8) x10^3/uL RBC 2.89 L (4.70-6.10) 10^6/uL Hgb 10.1 L (14.0-18.0) g/dL Hct 29.9 L (42.0-52.0) % MCV 103.5 H (80.0-94.0) fL MCH 35.1 H (27.0-31.0) pg MCHC 33.9 (32.0-36.0) g/dL RDW 13.2 (12.0-15.0) % Plt Count 223 (130-450) 10^3/uL MPV 7.2 L (7.4-11.4) fL Neut # (Auto) 5.2 (1.5-6.6) 10^3/uL Lymph # (Auto) 1.0 L (1.5-3.5) 10^3/uL Wilcox # (Auto) 2.2 H (0.0-1.0) 10^3/uL Eos # (Auto) 0.1 (0.0-0.7) 10^3/uL Baso # (Auto) 0.0 (0.0-0.1) 10^3/uL Absolute Nucleated RBC 0.01 x10^3/uL Nucleated RBC % 0.1 /100WBC Sodium (135-145) mmol/L Potassium (3.5-5.0) mmol/L Chloride (101-111) mmol/L Carbon Dioxide (21-32) mmol/L Anion Gap (6-13) BUN (6-20) mg/dL Creatinine (0.6-1.2) mg/dL Estimated GFR (MDRD) (>89) Glucose (70-100) mg/dL Calcium (8.5-10.3) mg/dL Phosphorus (2.5-4.6) mg/dL Magnesium (1.7-2.8) mg/dL Troponin I 0.31 (<0.49) ng/mL B-Natriuretic Peptide (5-100) pg/mL Nasal Screen MRSA (PCR) NEGATIVE (NEGATIVE) Ethyl Alcohol mg/dL 10/14/18 Range/Units 11:56 WBC (4.8-10.8) x10^3/uL RBC (4.70-6.10) 10^6/uL Hgb (14.0-18.0) g/dL Hct (42.0-52.0) % MCV (80.0-94.0) fL MCH (27.0-31.0) pg MCHC (32.0-36.0) g/dL RDW (12.0-15.0) % Plt Count (130-450) 10^3/uL MPV (7.4-11.4) fL Neut # (Auto) (1.5-6.6) 10^3/uL Lymph # (Auto) (1.5-3.5) 10^3/uL Wilcox # (Auto) (0.0-1.0) 10^3/uL Eos # (Auto) (0.0-0.7) 10^3/uL Baso # (Auto) (0.0-0.1) 10^3/uL Absolute Nucleated RBC x10^3/uL Nucleated RBC % /100WBC Sodium (135-145) mmol/L Potassium (3.5-5.0) mmol/L Chloride (101-111) mmol/L Carbon Dioxide (21-32) mmol/L Anion Gap (6-13) BUN (6-20) mg/dL Creatinine (0.6-1.2) mg/dL Estimated GFR (MDRD) (>89) Glucose (70-100) mg/dL Calcium (8.5-10.3) mg/dL Phosphorus (2.5-4.6) mg/dL Magnesium (1.7-2.8) mg/dL Troponin I (<0.49) ng/mL B-Natriuretic Peptide (5-100) pg/mL Nasal Screen MRSA (PCR) (NEGATIVE) Ethyl Alcohol < 5.0 mg/dL ABX Reporting Has patient been on IV antibiotics over the past 48 hours?: No Assessment/Plan - Problem List (1) Acute on chronic diastolic congestive heart failure, NYHA class 3 Impression: His previous echocardiogram of last admission showed an ejection fraction of 70% with grade 2 diastolic dysfunction. He is 7 L positive from his last admission and it is presumed that he is in diastolic heart failure. He is responding to current diuresis. Feels well enough that he thinks he may want to go home tomorrow. Plan: 1. Review echocardiogram. It was done this morning and final results are pending 2. Continue Lasix as needed and watch potassium and supplement as needed 3. Possible discharge tomorrow. (2) Alcohol abuse Impression: Previous admission was for alcohol withdrawal. Current admission is negative for alcohol abuse. He states he has not drank since before his last admission. His confirms that. Plan: Abnormal liver enzymes indicating possible cirrhosis. Will need follow-up ultrasound in the outpatient setting. Continue be multivitamin, thiamine, and again instructed not to ever drink again (3) HTN (hypertension) Impression: In the outpatient setting he is on Cozaar 100 mg daily. At this time he is with a blood pressure of 109-121 systolic. We will continue Cozaar. Will reassess if he needs this higher dose if he is can be continued on a diuretic. Qualifiers: Hypertension type: essential hypertension Qualified Code(s): I10 - Essential (primary) hypertension
[2018-10-16] MEDS: FUROSEMIDE 40 MG/4 ML VIAL IVP SCH (05:26)
[2018-10-16] MEDS: oxyCODONE 5 MG TABLET PO SCH (05:26)
[2018-10-16] MEDS: SODIUM CHLORIDE FLUSH 0.9% 10 ML SYRINGE IVP SCH ×2 (05:27→09:26)
--- NOTE | 2018-10-16 06:14 | XRAY Report ---
Reason: F/U CHF and possible R pneumonia by exam Procedure Date: 10/16/2018 Accession Number: [id number] / [id number] Procedure: XR - Chest 1 View X-Ray CPT Code: 03681 FULL RESULT: EXAM: CHEST RADIOGRAPHY EXAM DATE: 10/16/2018 06:06 AM. CLINICAL HISTORY: F/U CHF and possible R pneumonia by exam. COMPARISON: CHEST 1 VIEW 10/15/2018 5:54 AM. TECHNIQUE: 1 view. FINDINGS: Lungs/Pleura: No focal opacities evident. No pleural effusion. No pneumothorax. Mediastinum: Within exam limitations, the cardiomediastinal contour is normal. Other: None. IMPRESSION: Normal single view chest. RADIA
[2018-10-16 06:26] LABS: PHOSPHORUS 3.6 mg/dL (2.5-4.6)
[2018-10-16] MEDS ORDERED: POTASSIUM CHLORIDE 20 MEQ TABLET PO ONE (08:00)
[2018-10-16] MEDS: MAGNESIUM SULFATE 2 GRAM 2 GM/50 ML BAG IV SCH ×2 (08:04→09:21)
--- NOTE | 2018-10-16 09:09 | Discharge Plan ---
Discharge Plan Disposition: 01 Home, Self Care Condition: Fair Prescriptions: Carvedilol [Coreg] 6.25 mg PO BID #60 tablet Furosemide [Lasix] 40 mg PO BID #60 tablet Potassium Chloride 20 meq PO DAILY #30 tablet.er Diet: Low Sodium Activity Restrictions: Activity as Tolerated Shower Restrictions: No Driving Restrictions: No Instruction Topics: Furosemide tablets, Heart Failure, Carvedilol tablets Additional Instructions or Follow Up instructions: You came to the hospital because of significant shortness of breath and a feeling that you could not breathe, and it was making you feel quite panicky. We found you to be in congestive heart failure with quite a bit of extra fluid being retained in your body. We initially felt that it was extra fluid that you were unable to get rid of because of your previous admission for shock from bowel colitis and alcohol withdrawal. With the previous admission we had found your heart to be normal with a normal pump action of ejection fraction 65%. With this admission, we made you urinate with our medicine called Lasix, a diuretic. You were able to urinate over 5 L and you felt much better. We repeated the echocardiogram to make sure your heart was pumping normally, and unfortunately, your ejection fraction is now 35-40%. There appeared to be parts of the muscle on the left part of your heart that are no longer working. We think that you may have had a silent heart attack between your last discharge and this admission now. Because you have a new diagnosis of congestive heart failure, we needed to start you on new medicines. The treatment for congestive heart failure is a drug called an ELÍAS/ARB inhibitor, a diuretic, and a beta-marita. You are already on a form of the ARB inhibitor called Cozaar. We are adding Lasix/furosemide and Coreg/carvedilol to finish the treatment. Because this is a new diagnosis, with new treatment, we really need you to see your regular primary care provider, Vito Foley. Dr. Foley will then refer you to see cardiology. [facility] does have a large cardiology group. I would recommend that you see any straightening roll operator at [facility] in [place]. And then request to be transferred to the straightening roll operator that comes to the medical ambulatory clinic here at the [facility]. It just makes it easier for you to do follow-up on a straightening roll operator that comes to the [facility]. Of course, you could always choose to go to a cardiology group of your choosing. Please have your primary care provider weigh you on your next visit. That will be your baseline weight that you aim for in congestive heart failure. If your weight goes up suddenly over a few days you may need to take extra lasix. Your primary care provider needs to check blood test called a BMP and a BNP to make sure that the Lasix, Coreg, and Cozaar are working. I also recommend that you be referred to the cardiology education program here in the hospital. I am asking you that you not return to work until November 04. Make sure you to eat a low-salt diet. Try to maintain activity as much as possible. Follow-Up Care: [facility] - Cardiac No Smoking: If you smoke, Please STOP! Call for help. Follow-up with: Vito Foley MD [Primary Care Provider] -
[2018-10-16] MEDS: MORPHINE ER 15 MG TABLET PO SCH (09:24)
[2018-10-16] MEDS: LOSARTAN 50 MG TABLET PO SCH (09:24)
[2018-10-16] MEDS: FERROUS GLUCONATE 324 MG TABLET PO SCH (09:25)
[2018-10-16] MEDS: FAMOTIDINE 20 MG TABLET PO SCH (09:25)
[2018-10-16] MEDS: POLYETHYLENE GLYCOL 3350 17 GM PACKET PO SCH (09:26)
[2018-10-16] MEDS: THIAMINE 100 MG TABLET PO SCH (09:26)
[2018-10-16] MEDS: CIPROFLOXACIN 250 MG TABLET PO SCH (09:33)
[2018-10-16] MEDS: MAGNESIUM OXIDE 400 MG TABLET PO SCH (10:28)
[2018-10-16 11:17] VITALS: BP 93/61
--- NOTE | 2018-10-23 22:52 | DISCHARGE SUMMARY ---
Physician: Marissa Ellis MD DATE OF ADMISSION: 10/14/2018 DATE OF DISCHARGE: 10/16/2018 DISCHARGE DIAGNOSES 1. [id number] combined systolic and diastolic heart failure, Class C. 2. New diagnosis of dilated cardiomyopathy. 3. History of alcohol abuse. 4. Abnormal liver function studies. 5. Hypokalemia. 6. Hypertension. 7. Macrocytic anemia. DISCHARGE MEDICATIONS 1. Losartan 100 mg daily. 2. Morphine extended release 15 mg p.o. b.i.d. 3. Prilosec 10 mg daily. 4. Oxycodone 5 mg p.o. t.i.d. as needed. 5. Carvedilol 6.25 mg p.o. b.i.d. 6. Ferrous gluconate 240 mg p.o. daily. 7. Lasix 40 mg p.o. b.i.d. 8. Magnesium oxide 400 mg daily. 9. Potassium chloride 20 mEq daily. 10. Vitamin B1 at 100 mg tablet daily. PRINCIPAL PROCEDURES 1. Three chest x-rays on the 10/14/2018, 10/15/2018, and 10/16/2018. He has no focal opacities, no pleural effusions. A cardiomediastinal contour that is normal. This was the final chest x-ray, which was normal. The first chest x- ray showed possible right pneumonia by exam and pleural effusion. 2. Echocardiogram. Done on 10/15/2017. Normal left ventricular size. Severe hypokinesis of the distal two-thirds of the anterior wall, septum, the entire apex, and the distal half of the inferior wall. The left atrium is (and then the dictation is not complete anymore). Mildly dilated right ventricle with normal function. Comparable to the 10/11/2018, echocardiogram obvious wall motion abnormalities are now present, and left ventricular function is now worsened. HOSPITAL COURSE: Patient is a 58-year-old white man who was just admitted to the hospital 10/09/2018 and discharged 10/13/2018. With his hospitalization, he was admitted with septic shock secondary to dehydration related to acute colitis causing nausea, vomiting and diarrhea. He had severe volume depletion and acute kidney injury. He was managed in the ICU with IV Zosyn, transitioned to p.o. Cipro. Went through alcohol withdrawal requiring Librium. He was discharged on thiamine. Also had iron-deficiency anemia and discharge iron replacement therapy. During that admission, he had bowel rest, aggressive fluid replacement with crystalloids, and in total was 7 liters positive at the time of discharge. On his last day, he did describe being panicky and claustrophobic. There was concern that he was still having alcohol withdrawal, but he declined staying an additional day and was discharged. Over the next 24 hours, he remained off alcohol and was compliant with the Cipro, thiamine and iron, and soft diet for his colitis, but he continued to develop worsening dyspnea on exertion and then severe orthopnea. He had audible wheezing and severe air hunger, and his urged him to come back to the emergency room. He was found to have acute congestive heart failure on chest x- ray and was tachycardic, hypertensive. He was initially managed with Lasix, but this did not improve his respiratory status, and as such he is placed in observation status into the ICU for pulmonary edema and tachycardia control. Patient was felt to have acute congestive heart failure. His echo done on his last day was actually relatively normal, and a repeat echo, unfortunately, showed him to have severe new wall motion abnormalities. His CPK was 0.37 and on repeat was 0.31. A BNP with this admission was 1430. Urine tox screen was positive for opiates, oxycodone, and benzodiazepine. Serum alcohol level was not detectable. Urinalysis was unremarkable. Patient was diuresed over the course of his stay and by 48 hours was describing himself back down to baseline. He was ambulating in his room, at times pacing. His respiratory rate was 12 and he was 97-100% on room air. I shared the results of the echocardiogram with him and felt that he either had a dilated cardiomyopathy, developed from his alcohol abuse, but this is inconsistent with a history of a normal echo just a few days ago; I also wondered if he had a silent heart attack that he was unaware of, and his troponins were trending down when we got him. In any case, I explained to him that the treatment for congestive heart failure with diuretics, ELÍAS inhibitors, and beta blockers. Those medications were started in the form of Coreg, Lasix, potassium, and Cozaar. He had already been on Cozaar. I urged him to see a chute boss. He is followed by Vito Foley at [facility]. I explained that it could be easy for him to be referred to [facility] and [facility] [place] While his alcohol level was normal, his liver enzymes were abnormal. If those do not go down, I would suggest doing serology for hepatitis for completeness sake. Hypokalemia during his stay was treated with supplementation. He was continued on the B vitamins and iron for the macrocytic anemia. Blood pressure was not a problem and, in fact, he had low blood pressure at the time of discharge. His Cozaar may be able to be cut back from 100, which is his usual dose, to 50 when he sees his PCP or the new chute boss. Greater than 30 minutes was spent coordinating discharge. TD: 10/23/2018 16:51 [id number]
== END 2018-10-16 11:17 | disposition home or self-care (01) | DRG 293 ==
LOC: ED 11:10 → MS3 14:16 → OBSVTOIN 19:20 → ICU 10-15 00:01
PROVIDERS: ADMIT Internal Medicine; ATTEND Specialist
DX: I11.0 Hypertensive heart disease with heart failure (principal); I50.43 Acute on chronic combined systolic (congestive) and diastolic (congestive) heart failure; I42.0 Dilated cardiomyopathy; E87.6 Hypokalemia; R79.89 Other specified abnormal findings of blood chemistry; D50.9 Iron deficiency anemia, unspecified; F10.10 Alcohol abuse, uncomplicated; R00.0 Tachycardia, unspecified; K52.9 Noninfective gastroenteritis and colitis, unspecified; G89.29 Other chronic pain; M54.9 Dorsalgia, unspecified; Z79.891 Long term (current) use of opiate analgesic; Z79.899 Other long term (current) drug therapy
CPT/HCPCS: 36415; 71045; 80048; 80053; 80306; 80320; 81003; 82140; 82803; 82977; 83690; 83735; 83880; 84100; 84132; 84484; 85025; 87150; 93005; 93308; 94660; 96374; 96375; 96376; 97162; 99284; A9270; G0378; J2060; J2270; 80307; 81001; 87086